=== PATIENT | male | born 1960 | race Two or more races ===

== ENCOUNTER 2024-06-26 09:30 | Inpatient (IN) | payer MEDICAID, SELFPAY ==
[2024-06-26] VITALS (9 sets, daily range): BP systolic 118–144; BP diastolic 49–103; PULSE 86–112; RESP 12–96; TEMP 36.4–36.8; O2SAT 93–97; BMI 16.6; BMI 14.2
--- NOTE | 2024-06-26 09:40 | XR_ITS ---
Examination: Left femur 2 views TECHNIQUE: AP lateral left femur 2 views Exam date and time: June 26, 2024 0951 hours INDICATIONS: Left femur pain this week FINDINGS: Osteolytic lesion proximal to mid femoral shaft, 36 mm, destroying the cortex of the femoral shaft No pathologic fracture No hip dislocation Smaller osteolytic lesion subtrochanteric region left femur 13 mm IMPRESSION: Osteolytic lesion destroying cortex of the proximal femoral shaft, 36 mm Smaller osteolytic lesion subtrochanteric region left femur, 13 mm Differential would include osseous metastatic disease, round cell tumor such as multiple myeloma Recommend whole body bone scan follow-up Consider plain film metastatic bone survey follow-up Consider CT scan chest abdomen pelvis post contrast restaging
--- NOTE | 2024-06-26 09:40 | XR_ITS ---
Examination: Duplex scan of the lower extremity, unilateral left complete Date and time of exam: June 26, 2024 1005 hours INDICATIONS: Left leg pain beginning 3 days ago Technique: Duplex scan of the extremity veins using B-mode/grayscale imaging and Doppler spectral analysis and color flow Attention is directed to internal echogenicity, compression and augmentation involving these veins, color flow assessment, spectral analysis Findings: Major deep venous structures in the extremity demonstrate normal course and caliber. There is no evidence of deep vein thrombosis. Normal color flow and spectral analysis Impression: Negative for DVT..
--- NOTE | 2024-06-26 09:43 | PD.EDRME ---
Rapid Medical Screening Exam RME Arrival date/time: 06/26/24 09:30 63-year-old male with cancer presents to the emergency department today with caregiver who reports the patient is weak and has failure to thrive requesting G-tube and further evaluation Chief Complaint: Dental/Oral/Throat Time Seen by Provider: 06/26/24 12:39 Vital signs: Vital Signs Temperature 97.5 F 06/26/24 09:39 Pulse Rate 107 H 06/26/24 09:39 Respiratory Rate 19 06/26/24 09:39 Blood Pressure 131/86 H 06/26/24 09:39 Pulse Oximetry (%) 93 L 06/26/24 09:39 Oxygen Delivery Method Room Air 06/26/24 09:39
[2024-06-26 10:18] LABS: Basophils # (Auto) 0.1 Thou/mm3 (0.0-0.2); Basophils % (Auto) 1 % (0-2.5); Eosinophils # (Auto) 0.1 Thou/mm3 (0.0-0.5); Eosinophils % (Auto) 1 % (0-10); Hematocrit 31.7 % (41.0-53.0); Hemoglobin 10.2 g/dL (13.5-16.0); Immature Granulocytes % (Auto) 0 % (0-0); Immature Granulocytes Auto 0.02 Thou/mm3 (0.00-0.00); Lymphocytes # (Auto) 0.8 Thou/mm3 (1.0-4.8); Lymphocytes % (Auto) 14 % (10-50); Mean Corpuscular HGB Conc 32.2 g/dl (31.0-37.0); Mean Corpuscular Volume 87 fL (80-100); Monocytes # (Auto) 0.4 Thou/mm3 (0.0-0.8); Monocytes % (Auto) 6 % (0-12); Neutrophils # (Auto) 4.5 Thou/mm3 (1.8-7.7); Neutrophils % (Auto) 78 % (37-80); Nucleated Red Blood Cell % 0 /100 WBC (0); Platelet Count 239 Thou/mm3 (140-440); Red Blood Count 3.64 Miln/mm3 (4.50-5.90); White Blood Count 5.8 Thou/mm3 (3.8-10.6)
[2024-06-26 10:37] LABS: INR 1.1 (0.9-1.3); Prothrombin Time 11.9 Seconds (9.0-12.2)
[2024-06-26 10:52] LABS: Alanine Aminotransferase 9 U/L (10-49); Albumin, Serum 4.1 gm/dL (3.4-4.8); Alkaline Phosphatase 125 U/L (46-116); Anion Gap 7 (7-16); Aspartate Amino Transferase 26 U/L (0-34); BUN/Creatinine Ratio 21 Ratio (12-20); Bilirubin,Total 0.4 mg/dL (0.3-1.2); Blood Urea Nitrogen 17 mg/dL (9-23); Calcium 9.4 mg/dL (8.3-10.6); Calcium (Corrected) 9.4 mg/dL (8.5-10.1); Carbon Dioxide 30.3 mMol/L (20.0-31.0); Chloride 96 mMol/L (98-107); Creatinine (Component) 0.8 mg/dL (0.6-1.3); Estimated Creatinine Clearance 63.4 mL/min (>60); Globulin 4.3 gm/dL (2.3-3.5); Glucose 121 mg/dL (74-106); Lipase 26 U/L (12-53); Osmolality,Calculated 268 (275-295); Sodium 133 mMol/L (136-145); Total Protein 8.4 gm/dL (5.7-8.2); eGFR > 60 See Note
--- NOTE | 2024-06-26 12:40 | EDNOTE_ITS ---
<Statement entered by Kayce Morales MD - 06/26/24 16:17> As co-signing physician, I was present and available for consult prn. I concur with the plan and care as documented by the midlevel provider. ED General RME/HPI General Chief complaint: Dental/Oral/Throat Stated complaint: SENT BY CNX DR FOR THROAT SCARRING; HX THROAT [facility] Time Seen by Provider: 06/26/24 12:39 Arrival date/time: 06/26/24 09:30 RME / HPI RME / HPI narrative: 63-year-old male with history of oral cancer, status post radiation and chemotherapy, status post esophageal dilatation x 2, presents to the emergency department today with caregiver who reports the patient is weak and has failure to thrive . Patient has been ongoing for the last 2 years, getting worse, this time every time patient ate or drink patient is coughing a lot. Patient also is losing a lot of weight. Patient called her cancer specialist, and was advised to go to the emergency room for possible G-tube placement. Patient also complained of pain to the left femur for 3 days, severity moderate. Patient is ambulatory. Denies any other complaints. Related Data Home Medications ?Medication ?Instructions ?Recorded ?Confirmed lisinopril 10 mg tablet 10 mg PO QDAY #0 tabs 10/30/16 08/07/23 hydrocodone 10 mg-acetaminophen 1 tab PO Q4H PRN Pain, Severe 02/08/23 08/07/23 325 mg tablet levothyroxine 25 mcg/mL oral 50 mcg PO QDAY 02/08/23 08/07/23 solution methadone 10 mg tablet 100 mg PO QDAY 02/08/23 08/07/23 pantoprazole 40 mg tablet,delayed 40 mg PO BID 08/07/23 08/07/23 release Previous Rx's ?Medication ?Instructions ?Recorded amoxicillin 500 mg capsule 500 mg PO TID #30 caps 05/17/18 Allergies Allergy/AdvReac Type Severity Reaction Status Date / Time No Known Allergies Allergy Verified 06/26/24 09:33 Review of Systems Review of Systems Narrative Review of Systems: Review of system reviewed and within normal limits except mentioned in HPI ED Exam Narrative Physical exam: VITAL SIGNS: Reviewed. GENERAL APPEARANCE: Alert and interactive, follows commands, no acute distress, HEAD AND FACE: Non-traumatic. ENT: PERRL, pink conjunctivitis, eyelid no trauma, Mucous membrane moist. Scarring noted on the tongue and lower lip NECK: Supple, nontender, no nuchal rigidity. CHEST: No tenderness, no crepitus, no paradoxical movement, no retractions. LUNGS: Clear, well ventilated, symmetric, no rales, no wheezing, no ronchi, no stridor, good breath sounds bilaterally. HEART: Regular rate, regular rhythm, no murmur, no gallops. ABDOMEN: Soft, positive bowel sounds, nondistended, no guarding, nontender, no rebound, no masses, RECTAL: Deferred. GENITAL: Deferred. NEUROLOGICAL: Gross motor function intact sensory function intact, Appropriate for age. MUSCULOSKELETAL: low back nontender, full range of motion. EXTREMITIES: Left thigh tenderness, no swelling no deformity, full range of motion. SKIN: Color pink, dry, no rash, no lacerations, no abrasions, no contusions. LYMPHATICS: Deferred. Course Quality Measures none Orders Category Date Time Status COVID-19 Screening Questionnaire NOW Care 06/26/24 14:31 Active Decision to Admit X1 Care 06/26/24 14:31 Active Consult to Gastroenterology Stat Cons 06/26/24 13:48 Ordered US venous doppler LE LT Stat Exams 06/26/24 09:40 Completed XR femur LT 2V Stat Exams 06/26/24 09:40 Completed CBC Stat Lab 06/26/24 10:01 Completed Comprehensive Metabolic Panel Stat Lab 06/26/24 10:01 Completed Lipase Stat Lab 06/26/24 10:01 Completed Partial Thromboplastin Time Stat Lab 06/26/24 10:01 Completed Prothrombin Time with INR Stat Lab 06/26/24 10:01 Completed HYDROcodone*/APAP 5/325 [[place] 5/325] Med 06/26/24 13:06 Discontinued 1 tab PO X1 ONE Morphine Inj Med 06/26/24 13:25 Discontinued 4 mg IM X1 ONE Ondansetron Odt [Zofran Odt] Med 06/26/24 13:25 Discontinued 4 mg PO X1 ONE Vital Signs Vital signs: Vital Signs Temperature 97.5 F 06/26/24 09:39 Pulse Rate 107 H 06/26/24 09:39 Respiratory Rate 19 06/26/24 09:39 Blood Pressure 131/86 H 06/26/24 09:39 Pulse Oximetry (%) 93 L 06/26/24 09:39 Oxygen Delivery Method Room Air 06/26/24 09:39 MDM Patient data External records reviewed:: None Clinical information provided by:: none Social determinants that could affect healthcare access:: none Patient has the following chronic illnesses:: History of oral cancer How is presenting disease/condition affected by chronic disease/condition?: e xacerbated by Evaluation data The following diagnostics were reviewed and interpreted by me:: lab results and radiology exam(s) Lab and/or radiology exams considered but not ordered:: None Interpretation Summary: See above results in MDM Medications Medications considered but not ordered:: None Medication administrations:: Medication Administration History Discontinued Medications Hydrocodone Bitart/Acetaminophen (Hydrocodone/Apap 5/325 Tablet) 1 tab PO X1 ONE Stop: 06/26/24 13:07 Last Admin: 06/26/24 13:41 Dose: Not Given Documented By: HELENE Non-Admin Reason: Patient Refused Morphine Sulfate (Morphine Sulf Inj 10 Mg/Ml Vial) 4 mg IM X1 ONE Stop: 06/26/24 13:26 Last Admin: 06/26/24 13:40 Dose: 4 mg Documented By: HELENE Ondansetron HCl (Ondansetron Odt 4 Mg Tabrap) 4 mg PO X1 ONE; Protocol Stop: 06/26/24 13:26 Last Admin: 06/26/24 13:40 Dose: 4 mg Documented By: HELENE Morphine IM and Zofran Consultations Consultation(s) initiated? (list below): Yes Consultation #1 (Physician, Specialty, Details): I spoke with Dr. Vazquez, GI specialist on-call, thank you Dr. Vazquez Diagnosis Differential Diagnosis ED Complaint MDM: Failure to thrive, history of dysphagia, arthritis of the aspiration, histo Most likely diagnosis given after review of the tests above:: Failure to thrive, encounter for placement of G-tube Admission Indicated Admission indicated?: indicated Explain why admission is indicated or not indicated:: For G-tube placement Admission Request Was there a request for admission?: Yes Admission Attestation Admission request attestation: Discussed case with [Dr. Herrera] from Hospitalist service regarding admission. Discussed patients ED course, exam findings, labs, and radiology results. The Hospitalist [agrees] to accept the patient for admission. Disposition Plan Disposition Plan: Admit Medical Decision Making MDM Narrative MDM Narrative: 63-year-old male with history of oral cancer, status post radiation and chemotherapy, status post esophageal dilatation x 2, presents to the emergency department today with caregiver who reports the patient is weak and has failure to thrive . Patient has been ongoing for the last 2 years, getting worse, this time every time patient ate or drink patient is coughing a lot. Patient also is losing a lot of weight. Patient called her cancer specialist, and was advised to go to the emergency room for possible G-tube placement. Patient also complained of pain to the left femur for 3 days, severity moderate. Patient is ambulatory. Denies any other complaints. X-ray of the left femur showed osteolytic lesion could be metastasis. Results discussed with the patient's and family. Laboratory workup all came back with hemoglobin of 10.2 hematocrit 31.7 otherwise unremarkable. Ultrasound of the thigh is negative for DVT. Spoke with Dr. Vazquez, GI specialist on-call, told me to admit the patient for him to put the G-tube in the morning. Thank you Dr. Vazquez Differential Diagnosis Differential Diagnosis: Failure to thrive, history of dysphagia, arthritis of the aspiration, histo Lab Data 06/26/24 10:01 06/26/24 10:01 Labs: Lab Results 06/26/24 Range/Units 10:01 WBC 5.8 (3.8-10.6) Thou/mm3 RBC 3.64 L (4.50-5.90) Miln/mm3 Hgb 10.2 L (13.5-16.0) g/dL Hct 31.7 L (41.0-53.0) % MCV 87 (80-100) fL MCH 28.0 (25.0-35.0) pg MCHC 32.2 (31.0-37.0) g/dl RDW Std Deviation 42.0 (35.1-43.9) fL Plt Count 239 (140-440) Thou/mm3 Neut % (Auto) 78 (37-80) % Lymph % (Auto) 14 (10-50) % Love % (Auto) 6 (0-12) % Eos % (Auto) 1 (0-10) % Baso % (Auto) 1 (0-2.5) % Neut # (Auto) 4.5 (1.8-7.7) Thou/mm3 Lymph # (Auto) 0.8 L (1.0-4.8) Thou/mm3 Love # (Auto) 0.4 (0.0-0.8) Thou/mm3 Eos # (Auto) 0.1 (0.0-0.5) Thou/mm3 Baso # (Auto) 0.1 (0.0-0.2) Thou/mm3 Immature Gran # (Auto) 0.02 H (0.00-0.00) Thou/mm3 Absolute Nucleated RBC 0.00 (0.00-0.00) Thou/mm3 Immature Gran % 0 (0-0) % Nucleated RBC % 0 (0) /100 WBC PT 11.9 (9.0-12.2) Seconds INR 1.1 (0.9-1.3) APTT 29.0 (22.0-36.0) Seconds Sodium 133 L (136-145) mMol/L Potassium 4.0 (3.4-5.1) mMol/L Chloride 96 L (98-107) mMol/L Carbon Dioxide 30.3 (20.0-31.0) mMol/L Anion Gap 7 (7-16) BUN 17 (9-23) mg/dL Creatinine 0.8 (0.6-1.3) mg/dL Estim Creat Clear Calc 63.4 (>60) mL/min eGFR > 60 (60 - ) See Note BUN/Creatinine Ratio 21 H (12-20) Ratio Glucose 121 H (74-106) mg/dL Calculated Osmolality 268 L (275-295) Calcium 9.4 (8.3-10.6) mg/dL Corrected Calcium 9.4 (8.5-10.1) mg/dL Total Bilirubin 0.4 (0.3-1.2) mg/dL AST 26 (0-34) U/L ALT 9 L (10-49) U/L Alkaline Phosphatase 125 H (46-116) U/L Total Protein 8.4 H (5.7-8.2) gm/dL Albumin 4.1 (3.4-4.8) gm/dL Globulin 4.3 H (2.3-3.5) gm/dL Albumin/Globulin Ratio 1.0 L (1.2-2.2) Lipase 26 (12-53) U/L Discharge Plan Plan Patient Disposition: HOME (Self Care) Disposition Comment: stable Prescriptions/Referrals Prescriptions/Med Rec: No Action lisinopril 10 MG tablet 10 mg PO QDAY Qty: 0 amoxicillin 500 mg capsule 500 mg PO TID Qty: 30 0RF methadone 10 mg Tablet 100 mg PO QDAY hydrocodone-acetaminophen 10-325 mg Tablet 1 tab PO Q4H PRN (Reason: Pain, Severe) Rx Instructions: CANCER PAIN levothyroxine 25 mcg/mL Solution 50 mcg PO QDAY pantoprazole 40 mg Tablet,Delayed Release (Dr/Ec) 40 mg PO BID Referrals: Edward SAUNDERS)Lilia FNP [Primary Care Provider] - In 1 week Problem List Clinical Impression: Adult failure to thrive, Encounter for gastrojejunal tube placement, History of cancer of mouth Patient/Caregiver Discharge Instructions Print Language: Nepali Stand Alone Forms: Elidia Award Info., Patient Portal Info Letter
[2024-06-26] MEDS: MORPHINE SULF INJ 10 MG/ML VIAL 4 MG IM (13:40)
[2024-06-26] MEDS: ONDANSETRON ODT 4 MG TABRAP PO (13:40)
--- NOTE | 2024-06-26 15:11 | EKG_ITS ---
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
--- NOTE | 2024-06-26 15:26 | XR_ITS ---
Examination: AP chest single view Technique one AP portable upright chest single view Exam date and time: June 26, 2024 2 hours Comparison January 22, 2017 INDICATIONS: Severe congestion shortness of breath today. FINDINGS: Extensive bilateral lung opacity primarily interstitial Normal heart size Significant right pleural disease Severe osteopenia IMPRESSION: Extensive bilateral opacity primarily interstitial, differential would include pneumonia with underlying pulmonary fibrosis Consider high resolution CT chest without contrast follow-up
--- NOTE | 2024-06-26 15:35 | ESHP_ITS ---
<Statement entered by Yash Guerra MD - 07/02/24 12:09> I reviewed above note and agree with findings and plans. I have also personally examined the patient with medicine team and went over assessment and plan with medical team including chief internal auditor and resident physician. <Statement entered by Anne Heredia MD - 06/26/24 21:35> I discussed with and supervised my co-resident involved in the care of this patient. I agree with the assessment and plan as documented above. Anne Heredia,PGY-3 Disclaimer: Despite multiple revisions, due to the dictation software being used, the document below may not be free of grammatical errors including phonetic/typographic errors. However, this does not deter from our commitment to providing health care in the patient's best interest in mind. Documentation for date of: 06/26/24 HPI History of Present Illness Chief complaint: trouble swallowing, failure to thrive, and L leg pain History of present illness: 63-year-old male with past medical history of oral cancer s/p radiation and chemotherapy (underneath the tongue 15 years ago and lower lip 4 years ago), esophageal strictures s/p dilations x 2, hypothyroidism, active smoker (smoked since 11 years old) and prior heroin use (on methadone) was admitted to the hospital on 06/26/2024 after coming to the ED with chief complaints of weakness and failure to thrive. On assessment patient stated that he has been losing weight, but that he does have an appetite and is that he just cannot pass food down his throat. He states that he feels like the food gets stuck in his throat. He also mention that he initially came in because his left leg was very painful and that he could not bear weight on it due to pain. He stated that this pain started around 3 days ago. Patient's roommate was also at bedside and stated that he has been having a lot of weight loss. Patient follows up outpatient with oncologist at [facility], who we spoke to and stated that the patient was recently seen at [facility] for similar symptoms, but did not know GI workup was done. Patient stated that he would be agreeable to do PEG tube, but would like to have the proper workup prior to getting the PEG tube as he states that he has an appetite and wants to eat. He has no other complaints at this time. Off note, as per the patient's oncologist he stated that he does not think that his cancer recurred and thinks that new findings on his femur should be worked up. ED course: Initially patient was tachycardic, hypertensive, and afebrile. Initial labs were relevant for normocytic normochromic anemia (Hgb 10.2), mild hyponatremia (133), elevated globulin at 4.3, and elevated total protein to 8.4. Initial imaging included femur x-ray which showed osteolytic lesions destroying the cortex of the proximal femur shaft and a smaller osteolytic lesion still trochanteric region of the left femur. Additional imaging included a venous Doppler study which was negative for DVT, chest x-ray was showed bilateral opacities which could be due to pneumonia versus pulmonary fibrosis, and EKG which showed sinus tachycardia. PMH: As above Social Hx: Admits to smoking (1 to 2 cigarettes/day now), denies any drugs (is on methadone due to prior heroin use), admits to social drinking Meds: Methadone and levothyroxine, pending medication reconciliation. Review of Systems Review of Systems Narrative Review of Systems: Constitutional: Denies sweats, Admits weight loss, Denies fever, Denies chills. HEENT: Denies hearing loss, Denies ear pain, Denies postnasal drip, Denies double vision, Denies blurry vision. Respiratory: Denies shortness of breath, Denies cough, Denies wheezing. Cardiovascular: Denies chest pain, Denies palpitations, Denies sudden loss of consciousness. GI: Denies blood in stool, Denies constipation, Denies abdominal pain, Admits difficulty swallowing, Admits nausea. : Denies urinary incontinence, Denies pain while urinating, Denies increased urinary frequency. MSK: Admits joint pain, Denies joint swelling, Denies numbness. Skin: Denies rash, Denies itching, Denies easy bruising. Neuro: Denies headaches, Denies dizziness, Denies seizures. Past Medical History Surgical History OTHER SURGICAL HX: Essential hypertension Hypothyroidism Exam Vital Signs Temp Pulse Resp BP Pulse Ox O2 Del Method 98.2 F 106 H 16 144/103 H 94 L Room Air 06/26/24 15:06/26/24 15:06/26/24 15:06/26/24 15:01 06/26/24 15:01 06/26/24 15:01 Narrative Exam General: A/O x3, no acute distress, thin frail male, temporal wasting Eyes: PERRL, EOMI. Anicteric, vision grossly intact. Ears: No ear pain, no ear discharge, Hearing grossly intact. Nose: No nasal discharge. Mouth/Throat: Dry mucous membranes, no dentation,no redness, no lesions. Neck: Neck supple, non-tender, no cervical lymphadenopathy. Lungs: Clear JAVIER to auscultation and percussion, No accessory muscle use. Cardio: Normal S1/S2, regular rhythm, no murmurs, no JVD Abdomen: Soft, non-tender, no palpable masses, peristalsis present, no guarding or rebound. Extremities: Symmetrical, no significant deformities, no peripheral edema , L lower leg tender to mild palpation on lateral aspect of upper L Lower leg with a scar from previous cut (no surgery), peripheral pulses presents. Skin: No rashes, no lesions, warm to touch. Neuro: No focal neurological deficits. motor and sensory intact Results: Labs 06/26/24 10:01 06/26/24 10:01 Labs: Short CBC 06/26/24 Range/Units 10:01 WBC 5.8 (3.8-10.6) Thou/mm3 Hgb 10.2 L (13.5-16.0) g/dL Hct 31.7 L (41.0-53.0) % Plt Count 239 (140-440) Thou/mm3 BMP 06/26/24 10:01 Sodium 133 L Potassium 4.0 Chloride 96 L Carbon Dioxide 30.3 BUN 17 Creatinine 0.8 Glucose 121 H Calcium 9.4 Liver Function 06/26/24 Range/Units 10:01 Total Bilirubin 0.4 (0.3-1.2) mg/dL AST 26 (0-34) U/L ALT 9 L (10-49) U/L Alkaline Phosphatase 125 H (46-116) U/L Albumin 4.1 (3.4-4.8) gm/dL Quality Measures Quality Measures none Medications Home Medications and Allergies Home Medications ?Medication ?Instructions ?Recorded ?Confirmed ?Type lisinopril 10 mg tablet 10 mg PO QDAY #0 tabs 10/30/16 08/07/23 History hydrocodone 10 mg-acetaminophen 1 tab PO Q4H PRN Pain, Severe 02/08/23 08/07/23 History 325 mg tablet levothyroxine 25 mcg/mL oral 50 mcg PO QDAY 02/08/23 08/07/23 History solution methadone 10 mg tablet 100 mg PO QDAY 02/08/23 08/07/23 History pantoprazole 40 mg tablet,delayed 40 mg PO BID 08/07/23 08/07/23 History release Allergies Allergy/AdvReac Type Severity Reaction Status Date / Time No Known Allergies Allergy Verified 06/26/24 09:33 Visit Medications Discontinued Medications Hydrocodone Bitart/Acetaminophen (Hydrocodone/Apap 5/325 Tablet) 1 tab PO X1 ONE Stop: 06/26/24 13:07 Last Admin: 06/26/24 13:41 Dose: Not Given Morphine Sulfate (Morphine Sulf Inj 10 Mg/Ml Vial) 4 mg IM X1 ONE Stop: 06/26/24 13:26 Last Admin: 06/26/24 13:40 Dose: 4 mg Ondansetron HCl (Ondansetron Odt 4 Mg Tabrap) 4 mg PO X1 ONE; Protocol Stop: 06/26/24 13:26 Last Admin: 06/26/24 13:40 Dose: 4 mg Assessment & Plan Plan 63-year-old male with past medical history of oral cancer s/p radiation and chemotherapy (underneath the tongue 15 years ago and lower lip 4 years ago), esophageal strictures s/p dilations x 2, hypothyroidism, active smoker (smoked since 11 years old) and prior heroin use (on methadone) was admitted to the hospital on 06/26/2024 for dysphagia, failure to thrive, and left leg pain. #Dysphagia #Failure to thrive #Hx of esophageal stricture s/p dilation x 2 #protein calorie malnutrition #cachexia ? Patient states today he has been having trouble passing his food that he thinks they get stuck in his throat. ? DDx esophageal strictures versus esophageal malignancy -BMI -14.2 Plan: ? N.p.o. after midnight ? GI consulted, particular lesions ? Refer to registered dietitian ? Refer to speech therapist ? Will continue to monitor #Left lower leg pain #Left femur osteolytic lesions #Hx of oral cancer s/p radiatation and chemo ? Patient states that he has been unable to bear weight on his left lower leg as it is very painful ?DDx bone metastasis versus multiple myeloma in the setting of high globulin ? Femur x-ray showed osteolytic lesion destroying cortex of proximal femur shaft measuring 36 mm and smaller loculated lesion of the subtrochanteric region of the left femur measuring 13 mm ? Spoke with patient's oncologist who stated that it was less likely to be recurrence of his prior cancer and that they which was most probably something new that he needed to have further workup. Plan: -Toradol 30mg prn for pain as needed -Patient may need bone biopsy, but will wait for recs from oncology - Consult hematology/oncology, appreciate recommendations -Will continue to monitor #Hypothyroidism -TSH ordered for am labs -Will restart patient's levothyroxine #Hx of prior heroin use (on methadone) -Will await patient to bring his methadone to reconcile and start -Took today's dose already Disposition: Patient admitted to telemetry for GI workup due to dysphagia and new osteolytic lesion in L femur. Diet: NPO GI prophylaxis: Protonix DVT prophylaxis: SCDs Code: Full code Case disclosed with Attending Dr. Guerra and My senior Dr. Heredia PGY3. Juventino Figueroa PGY1
--- NOTE | 2024-06-26 16:46 | ESCONSULT_ITS ---
HPI Data of Consult Requesting Physician: Yash Guerra MD Primary Care Provider: L[facility] Schroeder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 and unable to eat I was consulted by the physician physician office assistant/LESLIE of the possibility of a placement of an endoscopically assisted gastrostomy tube cc:: cc: Yash Guerra MD Review of Systems Review of Systems Systems Reviewed: All systems reviewed, normal except as documented Past Medical History Surgical History OTHER SURGICAL HX: Essential hypertension Hypothyroidism Meds Home Medications and Allergies Home Medications ?Medication ?Instructions ?Recorded ?Confirmed ?Type lisinopril 10 mg tablet 10 mg PO QDAY #0 tabs 10/30/16 08/07/23 History hydrocodone 10 mg-acetaminophen 1 tab PO Q4H PRN Pain, Severe 02/08/23 08/07/23 History 325 mg tablet levothyroxine 25 mcg/mL oral 50 mcg PO QDAY 02/08/23 08/07/23 History solution methadone 10 mg tablet 100 mg PO QDAY 02/08/23 08/07/23 History pantoprazole 40 mg tablet,delayed 40 mg PO BID 08/07/23 08/07/23 History release Allergies Allergy/AdvReac Type Severity Reaction Status Date / Time No Known Allergies Allergy Verified 06/26/24 09:33 Exam Vital Signs Temp Pulse Resp BP Pulse Ox O2 Del Method O2 Flow Rate 98.2 F 104 H 12 139/90 H 93 L Room Air 1 06/26/24 16:11 06/26/24 16:11 06/26/24 16:11 06/26/24 16:11 06/26/24 16:11 06/26/24 16:11 06/26/24 16:09 Constitutional Comments: Chronically ill-appearing Routine Respiratory Exam Comments: Normal to auscultation Routine Abdominal Exam Comments: Soft nontender Results Labs 06/26/24 10:01 06/26/24 10:01 Labs: Short CBC 06/26/24 Range/Units 10:01 WBC 5.8 (3.8-10.6) Thou/mm3 Hgb 10.2 L (13.5-16.0) g/dL Hct 31.7 L (41.0-53.0) % Plt Count 239 (140-440) Thou/mm3 BMP 06/26/24 10:01 Sodium 133 L Potassium 4.0 Chloride 96 L Carbon Dioxide 30.3 BUN 17 Creatinine 0.8 Glucose 121 H Calcium 9.4 Liver Function 06/26/24 Range/Units 10:01 Total Bilirubin 0.4 (0.3-1.2) mg/dL AST 26 (0-34) U/L ALT 9 L (10-49) U/L Alkaline Phosphatase 125 H (46-116) U/L Albumin 4.1 (3.4-4.8) gm/dL Assessment and Plan Additional Assessment & Plan Additional Plan: # Failure to thrive with dysphagia in the setting of oropharyngeal malignancy Patient will undergo fiberoptic esophagogastroduodenoscopy with possible esophageal dilatation possible placement of a percutaneous endoscopic gastrostomy tube under intravenous moderate sedation scheduled for tomorrow Consent obtained Ancef 1 g IV piggyback on-call to endoscopy Other medical problems include # Essential hypertension # Hypothyroidism # Abnormal weight loss Thank you very much for the opportunity to participate in the care of this patient
--- NOTE | 2024-06-26 17:07 | PC.NURSE ---
Addendum entered by Andrae Vanessa RN 06/26/24 19:12: @1708- PER DR. COPE, PT OK TO DRINK AND EAT UNTIL 0900 TOMORROW. Original Note: DR. COPE AT BEDSIDE OBTAINING CONSENT FOR PT'S PROCEDURE.
[2024-06-26] MEDS: KETOROLAC INJ 30 MG/ML VIAL IVP (17:27)
[2024-06-27] VITALS (25 sets, daily range): BP systolic 98–151; BP diastolic 68–106; PULSE 76–106; RESP 8–24; TEMP 36.2–36.8; O2SAT 88–99; BMI 14.1
[2024-06-27] MEDS: KETOROLAC INJ 30 MG/ML VIAL IVP ×3 (03:41→23:54)
[2024-06-27] MEDS: LEVOTHYROXINE SODIUM 125 MCG TABLET PO (05:03)
[2024-06-27 06:44] LABS: Basophils % (Auto) 1 % (0-2.5); Eosinophils # (Auto) 0.1 Thou/mm3 (0.0-0.5); Eosinophils % (Auto) 3 % (0-10); Hematocrit 30.2 % (41.0-53.0); Hemoglobin 9.8 g/dL (13.5-16.0); Immature Granulocytes % (Auto) 0 % (0-0); Immature Granulocytes Auto 0.02 Thou/mm3 (0.00-0.00); Lymphocytes % (Auto) 21 % (10-50); Mean Corpuscular HGB Conc 32.5 g/dl (31.0-37.0); Mean Corpuscular Hemoglobin 28.2 pg (25.0-35.0); Mean Corpuscular Volume 87 fL (80-100); Monocytes # (Auto) 0.4 Thou/mm3 (0.0-0.8); Monocytes % (Auto) 8 % (0-12); Neutrophils # (Auto) 3.2 Thou/mm3 (1.8-7.7); Neutrophils % (Auto) 67 % (37-80); Nucleated Red Blood Cell % 0 /100 WBC (0); Platelet Count 222 Thou/mm3 (140-440); RDW Standard Deviation 41.1 fL (35.1-43.9); Red Blood Count 3.47 Miln/mm3 (4.50-5.90); White Blood Count 4.8 Thou/mm3 (3.8-10.6)
[2024-06-27 07:12] LABS: Alanine Aminotransferase < 7 U/L (10-49); Albumin, Serum 3.7 gm/dL (3.4-4.8); Albumin/Globulin Ratio 0.9 (1.2-2.2); Alkaline Phosphatase 121 U/L (46-116); Anion Gap 6 (7-16); Aspartate Amino Transferase 21 U/L (0-34); BUN/Creatinine Ratio 20 Ratio (12-20); Bilirubin,Total 0.5 mg/dL (0.3-1.2); Blood Urea Nitrogen 14 mg/dL (9-23); Calcium 9.4 mg/dL (8.3-10.6); Calcium (Corrected) 9.6 mg/dL (8.5-10.1); Carbon Dioxide 30.6 mMol/L (20.0-31.0); Cardiac Risk Estimate 2.7 RATIO (4.0-6.7); Chloride 96 mMol/L (98-107); Cholesterol 103 mg/dL (132-200); Creatinine (Component) 0.7 mg/dL (0.6-1.3); Globulin 4.2 gm/dL (2.3-3.5); Glucose 68 mg/dL (74-106); HDL Cholesterol 38 mg/dL (40-60); LDL Cholesterol,Calculated 51 mg/dL (0-130); Magnesium 1.6 mg/dL (1.6-2.6); Osmolality,Calculated 264 (275-295); Phosphorous 3.1 mg/dL (2.4-5.1); Potassium 4.2 mMol/L (3.4-5.1); Sodium 133 mMol/L (136-145); Thyroid Stimulating Hormone 9.86 uIU/mL (0.55-4.78); Total Protein 7.9 gm/dL (5.7-8.2); Triglycerides 72 mg/dL (30-150); eGFR > 60 See Note
--- NOTE | 2024-06-27 07:49 | ESCONSULT_ITS ---
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 3 years ago patient was thought to have cancer involving the lip and had chemotherapy in [place] under Dr. Dean's direction. Since his treatment she has had chronic malnutrition thought to be related to his treatment side effects. Patient was admitted with failure to thrive initially went to [facility] ER then was admitted through [facility] yesterday. Patient had left femur x-ray because of complaints of pain at that site which revealed osteolytic lesion destroying the cortex of the femur all approximately 36 mm as well as smaller osteolytic lesion in the subtrochanteric region left femur 13 mm. Chest x-ray revealed extensive bilateral opacity with pneumonia and pulmonary fibrosis among the differentials. Labs showed moderate anemia of 10.2 hemoglobin, elevated TSH of 9.86, globulin and total protein elevated. Patient has seen Dr. Vazquez who has scheduled patient for endoscopy and possible placement of G-tube. Patient now referred for oncological consultation. 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 Meds Home Medications and Allergies Home Medications ?Medication ?Instructions ?Recorded ?Confirmed ?Type hydrocodone 10 mg-acetaminophen 1 tab PO Q4H PRN Pain, Severe 02/08/23 06/27/24 History 325 mg tablet levothyroxine 25 mcg/mL oral 50 mcg PO QDAY 02/08/23 06/27/24 History solution pantoprazole 40 mg tablet,delayed 40 mg PO BID 08/07/23 06/27/24 History release methadone 10 mg/mL oral concentrate 100 mg PO QDAY 06/27/24 06/27/24 History Allergies Allergy/AdvReac Type Severity Reaction Status Date / Time No Known Allergies Allergy Verified 06/26/24 09:33 Exam Vital Signs Temp Pulse Resp BP Pulse Ox O2 Del Method O2 Flow Rate 97.9 F 100 16 112/90 H 93 L Nasal Cannula 2 06/27/24 04:00 06/27/24 04:00 06/27/24 04:00 06/27/24 04:00 06/27/24 04:00 06/27/24 04:00 06/27/24 04:00 Narrative Exam Thin gentleman lying comfortably; oral cavity with prior surgery radiation effects mouth and lip. Results Labs 06/27/24 05:50 06/27/24 05:50 Labs: Short CBC 06/26/24 06/27/24 Range/Units 10:01 05:50 WBC 5.8 4.8 (3.8-10.6) Thou/mm3 Hgb 10.2 L 9.8 L (13.5-16.0) g/dL Hct 31.7 L 30.2 L (41.0-53.0) % Plt Count 239 222 (140-440) Thou/mm3 BMP 06/26/24 06/27/24 10:01 05:50 Sodium 133 L 133 L Potassium 4.0 4.2 Chloride 96 L 96 L Carbon Dioxide 30.3 30.6 BUN 17 14 Creatinine 0.8 0.7 Glucose 121 H 68 L D Calcium 9.4 9.4 Liver Function 06/26/24 06/27/24 Range/Units 10:01 05:50 Total Bilirubin 0.4 0.5 (0.3-1.2) mg/dL AST 26 21 (0-34) U/L ALT 9 L < 7 L (10-49) U/L Alkaline Phosphatase 125 H 121 H (46-116) U/L Albumin 4.1 3.7 (3.4-4.8) gm/dL Assessment and Plan Additional Assessment & Plan Additional Plan: 1. History of prior tongue and lip cancer; prior surgery chemoradiation. 2. Suspected left femur mets; possible new primary malignancy site needs to be suspected since oral and lip cancer rarely metastasizes to distant bony sites. 3. Weight loss and cachexia; awaiting EGD and possible G-tube placement by Dr. Vazquez. 4. Shall order bone scan tumor markers plasma cell tumor markers CT chest abdomen, and follow.
--- NOTE | 2024-06-27 08:09 | XR_ITS ---
Examination: CT chest with intravenous contrast CT abdomen with intravenous contrast CT pelvis with intravenous contrast 2-D coronal and sagittal reconstructions Time of exam: June 27, 2024 1207 hours INDICATIONS: Diagnosis head and neck malignancy, CT chest November 08, 2023 24 mm nodule spiculated margins right upper lobe, 4 mm pulmonary nodule left upper lobe, 4 mm pulmonary nodule right lower lobe, restaging CTDI: vol (mGy) : 4.01 DLP: (mGycm): 288 Technique: Multiple axial images of the chest, abdomen and pelvis with intravenous contrast, 3.0 mm slice thickness. Images obtained post intravenous injection Isovue 370 60 cc. 2-D sagittal and coronal reconstructions. Low dose protocols were performed. One or more of the following dose reduction techniques were used; automated exposure control, adjustment of the mA and/or KV according to patient size, use of iterative reconstruction technique. Findings: Enlarging pretracheal lymph node mass, currently 26 mm Interval bilateral hilar lymphadenopathy, prominent right hilum surrounding the right pulmonary artery No pulmonary artery emboli Likely obstructive pneumonia in the right lower lobe secondary to the enlarging right hilar lymphadenopathy Enlarging spiculated pulmonary mass in the right upper lobe, currently at least 26 mm 6 mm pulmonary nodule in the right upper lobe Moderate to large right pleural effusion Dilated bronchi in both lower lobes 6 mm 4 mm pulmonary nodules left midlung No visualized liver or splenic lesion Gallstones No pancreatic mass No hydronephrosis Abdominal aorta normal size Large amounts of stool throughout the colon Distended urinary bladder Transverse prostate dimension 4.5 cm Moderate osteopenia IMPRESSION: Interval enlarging mediastinal lymphadenopathy Obstructive pneumonia in the right lower lobe secondary to the enlarging right hilar lymphadenopathy Progression of pulmonary metastatic disease Moderate to large right pleural effusion amenable to ultrasound-guided thoracentesis
[2024-06-27 09:39] LABS: Carcinoembryonic Antigen 10.4 ng/mL (0.0-5.0)
[2024-06-27 10:17] LABS: Prostate Specific Antigen 0.72 ng/mL (0-4.00)
[2024-06-27] MEDS: SODIUM CHLORIDE 0.9% 1000 ML 1,000 ML 80 ML IV ×2 (10:24→21:13)
[2024-06-27] MEDS: PANTOPRAZOLE INJ 40 MG VIAL IVP (10:25)
--- NOTE | 2024-06-27 11:16 | ESPR_ITS ---
<Statement entered by Yash Guerra MD - 07/02/24 12:10> I reviewed above note and agree with findings and plans. I have also personally examined the patient with medicine team and went over assessment and plan with medical team including chemical engineering intern and resident physician. Documentation for date of: 06/27/24 Subjective Subjective Interval history: Patient seen at bedside this morning. He will be n.p.o. after breakfast for EGD today with possible dilation if there is any esophageal stricture and possible placement of PEG tube. Patient was irritable today as he stated he was hungry and did not have anything to eat other than liquids. He also stated that he wanted pain medication, but his methadone will be restarted today. Oncology saw the patient and stated they could be possible metastasis to left femur versus new malignancy. Oncology was ordered bone scan and tumor markers. No other complaints this time. Exam Vital Signs Temp Pulse Resp BP Pulse Ox O2 Del Method O2 Flow Rate 97.6 F 105 H 16 139/106 H 93 L Nasal Cannula 2 06/27/24 07:55 06/27/24 07:55 06/27/24 07:55 06/27/24 07:55 06/27/24 07:55 06/27/24 07:55 06/27/24 07:55 Narrative Exam General: A/O x3, no acute distress, thin frail male, temporal wasting, irritable Eyes: PERRL, EOMI. Anicteric, vision grossly intact. Ears: No ear pain, no ear discharge, Hearing grossly intact. Nose: No nasal discharge. Mouth/Throat: Dry mucous membranes, no dentation,no redness, no lesions. Neck: Neck supple, non-tender, no cervical lymphadenopathy. Lungs: Clear JAVIER to auscultation and percussion, No accessory muscle use. Cardio: Normal S1/S2, regular rhythm, no murmurs, no JVD Abdomen: Soft, non-tender, no palpable masses, peristalsis present, no guarding or rebound. Extremities: Symmetrical, no significant deformities, no peripheral edema , L lower leg tender to mild palpation on lateral aspect of upper L Lower leg with a scar from previous cut (no surgery), peripheral pulses presents. Skin: No rashes, no lesions, warm to touch. Neuro: No focal neurological deficits. motor and sensory intact Objective Labs 06/27/24 05:50 06/27/24 05:50 Labs: Laboratory Results - last 24 hr 06/27/24 05:50 WBC 4.8 RBC 3.47 L Hgb 9.8 L Hct 30.2 L MCV 87 MCH 28.2 MCHC 32.5 RDW Std Deviation 41.1 Plt Count 222 Neut % (Auto) 67 Lymph % (Auto) 21 Carver % (Auto) 8 Eos % (Auto) 3 Baso % (Auto) 1 Neut # (Auto) 3.2 Lymph # (Auto) 1.0 Carver # (Auto) 0.4 Eos # (Auto) 0.1 Baso # (Auto) 0.0 Immature Gran # (Auto) 0.02 H Absolute Nucleated RBC 0.00 Immature Gran % 0 Nucleated RBC % 0 Sodium 133 L Potassium 4.2 Chloride 96 L Carbon Dioxide 30.6 Anion Gap 6 L BUN 14 Creatinine 0.7 Estim Creat Clear Calc 64.0 eGFR > 60 BUN/Creatinine Ratio 20 Glucose 68 L D Calculated Osmolality 264 L Calcium 9.4 Corrected Calcium 9.6 Phosphorus 3.1 Magnesium 1.6 Total Bilirubin 0.5 AST 21 ALT < 7 L Alkaline Phosphatase 121 H Total Protein 7.9 Albumin 3.7 Globulin 4.2 H Albumin/Globulin Ratio 0.9 L Triglycerides 72 Cholesterol 103 L LDL Cholesterol, Calc 51 HDL Cholesterol 38 L Cholesterol/HDL Ratio 2.7 L Carcinoembryonic Ag 10.4 H Prostate Specific Ag 0.72 TSH 9.86 H Quality Measures Quality Measures none Assessment & Plan Assessment Current Active Medications: Generic Name Dose Route Start Last Admin Trade Name Freq PRN Reason Stop Dose Admin Acetaminophen 650 mg 06/26/24 15:36 Acetaminophen 325 Mg Tablet PO 07/26/24 15:35 Q6H PRN pain(1-3) and Fever >100.4 Methadone 100 Mg 0 ea 06/27/24 11:00 Cups PO 07/27/24 10:59 DAILY ARNOL Dextrose 25 ml 06/27/24 07:30 Dextrose 50%-Water Inj 50 Ml Syringe IV 07/27/24 07:29 Q15MIN PRN BG 50-70 responsive npo pt Dextrose 50 ml 06/27/24 07:30 Dextrose 50%-Water Inj 50 Ml Syringe IV 07/27/24 07:29 Q15MIN PRN BG <50 OR BG <70 & pt unresponsive Glucagon 1 mg 06/27/24 07:30 Glucagon Inj 1 Mg Vial IM Q15MIN PRN BG <70, and no IV access Sodium Chloride 1,000 mls @ 80 mls/hr 06/27/24 09:15 06/27/24 10:24 Ns IV 07/27/24 09:14 80 mls/hr .[id number] ARNOL Administration Ketorolac Tromethamine 30 mg 06/26/24 16:28 06/27/24 03:41 Ketorolac Inj 30 Mg/Ml Vial IVP 07/01/24 16:27 30 mg Q6HR PRN Administration PAIN SCALE 4-10(Mod-Sev Levothyroxine Sodium 125 mcg 06/27/24 06:00 06/27/24 05:03 Levothyroxine Sodium 125 Mcg Tablet PO 07/27/24 05:59 125 mcg ACBR ARNOL Administration Ondansetron HCl 4 mg 06/26/24 15:36 Ondansetron Inj 2 Mg/Ml Inj 2 Ml IV 07/26/24 15:35 Q6H PRN NAUSEA OR VOMITING Protocol Pantoprazole Sodium 40 mg 06/27/24 09:15 06/27/24 10:25 Pantoprazole Inj 40 Mg Vial IVP 07/27/24 09:14 40 mg QDAY ARNOL Administration Pharmacy Consult 1 each 06/26/24 20:00 Pharmacy To Consult Pneumovacc XX 07/26/24 19:59 PRN PRN CONSULT Sennosides 1 tab 06/26/24 15:36 Senna Tablet PO 07/26/24 15:35 QDAY PRN constipation Protocol Plan 63-year-old male with past medical history of oral cancer s/p radiation and chemotherapy (underneath the tongue 15 years ago and lower lip 4 years ago), esophageal strictures s/p dilations x 2, hypothyroidism, active smoker (smoked since 11 years old) and prior heroin use (on methadone) was admitted to the hospital on 06/26/2024 for dysphagia, failure to thrive, and left leg pain. #Dysphagia #Failure to thrive #Hx of esophageal stricture s/p dilation x 2 #protein calorie malnutrition #cachexia ? Patient states today he has been having trouble passing his food that he thinks they get stuck in his throat. ? DDx esophageal strictures versus esophageal malignancy -BMI -14.2 Plan: ? N.p.o. -EGD today ? GI consulted, particular lesions ? Refer to registered dietitian ? Refer to speech therapist ? Will continue to monitor #Left lower leg pain #Left femur osteolytic lesions #Hx of oral cancer s/p radiatation and chemo ? Patient states that he has been unable to bear weight on his left lower leg as it is very painful ?DDx bone metastasis versus multiple myeloma in the setting of high globulin ? Femur x-ray showed osteolytic lesion destroying cortex of proximal femur shaft measuring 36 mm and smaller loculated lesion of the subtrochanteric region of the left femur measuring 13 mm ? Spoke with patient's oncologist who stated that it was less likely to be recurrence of his prior cancer and that they which was most probably something new that he needed to have further workup. Plan: -Toradol 30mg prn for pain as needed -bone scan and tumor markers ordered - Consult hematology/oncology, appreciate recommendations -Will continue to monitor #Hypothyroidism -TSH 9.86, orderd free t4 for am -Will continue patient's levothyroxine #Hx of prior heroin use (on methadone) -Will continue patient's methadone Disposition: Patient pendign EGD, bone scan and tumor markers Diet: NPO GI prophylaxis: Protonix DVT prophylaxis: SCDs Code: Full code Case disclosed with Attending Dr. Guerra and My senior Dr. Herrera PGY2. Juventino Figueroa PGY1 Senior Resident Attestation: The patient is a 63-year-old male with significant past medical history of oral cancer s/p radiation and chemotherapy 15 years ago, esophageal stricture s/p dilatation x 2, hypothyroidism, active smoker since age 11 and prior heroin use on methadone presented to ED with chief complaint of dysphagia leading to failure to thrive. This morning, patient reported that he has been hungry and wanted to eat. However, we will only resume feeding after the patient gets PEG tube placed. He also complained of leg pain, and will be getting methadone 100 Mg daily starting today. His vitals were fairly stable, mildly tachycardic, saturating 97% on 2 L NC. CBC at baseline, blood sugar 68, with CEA 10.4 and TSH 9.86. We will continue with Toradol 30 Mg 4 times daily as needed for pain and levothyroxine 50 mcg daily along with pantoprazole 40 Mg IV daily. After PEG tube placement, we will observe the patient overnight, and start the feeding. The plan is to possibly discharge this patient tomorrow afternoon. I discussed with and supervised the chemical engineering intern physician involved in the care of this patient. I personally saw and examined the patient and discussed the assessment and plan with the entire medicine team, including my attending. I agree with the assessment and plan as documented above. Tejas Herrera MD PGY2 Internal Medicine
--- NOTE | 2024-06-27 11:17 | PC.DIETICIAN ---
Patient is at significant risk for refeeding syndrome. Pending swallow evaluation If EN is initiated, consider: 1. Jevity 1.2 at 20 ml/hr x 24 hrs (do not advance). If no IV fluids, water flushes 25 ml/hr (or per MD). 2.Thiamine 100mg/day for 7 days; provide first dose at least 30 minutes before starting nutrition. 3.Multivitamins/Minerals. 4.Daily labs for P, K, and Mg ; replace as needed. If no electrolytes disturbances after 24 hrs, advance 10 ml every 12 hrs to goal rate of 70ml/hr x 24 hrs. Continue with water flushes 25 ml/hr (or per MD). RD to remain available as requested or needed.
[2024-06-27] MEDS: METHADONE 100 MG PO (11:39)
--- NOTE | 2024-06-27 12:08 | PC.NURSE ---
Pt is pissed because he NPO for procedure that is happening tonight at [address] Vazquez, he is cussing at nursing staff
--- NOTE | 2024-06-27 16:15 | PC.SS ---
Chata is alert/oriented. He states he resides at home with his friend. Patient to have a new peg tube placed today. Patient states he was having difficulty eating for the last 5 months. All he was eating was oatmeal. Patient very frail. He was not using any DME at home. Patient states he was holding on to things to get around his home. Patient has hx: Cancer. Patient states he would like a walker w/seat for home. Patient states he prefers HH services. Patient is on methadone. Patient PCP: Dr. Leon with [facility]. Last appointment was in April. Patient has no preference on home health agency. Patient states his friend, Liset, is the alt medical decision maker.
[2024-06-27] MEDS: ceFAZolin/D5W 1 GM IVPB 1 GM/50 ML BAG IV (16:52)
[2024-06-27] MEDS: DEXTROSE 50%-WATER INJ 50 ML SYRINGE 25 ML IV (17:49)
--- NOTE | 2024-06-27 19:00 | SUR.PHASEI ---
Pt. arrived to recovery, eyes closed, not responding to verbal commands, VSS with exception of 02 saturation at 88%, 02 via NC applied at 5 liters, lung sounds clear, diminished at the bases, equal expansion teresa., peg tube in place to medial abdomen small amount of redness to skin area around peg tube, report received from Precious MIRANDA.
--- NOTE | 2024-06-27 19:16 | SUR.PHASEI ---
Called and made Precious RN and Dr. Vazquez aware of pt.'s blood glucose of 57. Dr. Vazquez ordered dextrose 50% 50ml via IV. Will endorse and re-check blood glucose per policy.
[2024-06-27] MEDS: DEXTROSE 50%-WATER INJ 50 ML SYRINGE IV (19:26)
--- NOTE | 2024-06-27 20:21 | SUR.PHASEI ---
Pt. not responding to verbal commands, pressure to nail bed or sternal rub. VSS, continuing to attempt to stimulate pt.
--- NOTE | 2024-06-27 20:39 | SUR.PHASEI ---
Pt. responding to light shaking, opens eyes, sits up and lays back down and goes to sleep.
--- NOTE | 2024-06-27 20:45 | SUR.PHASEI ---
Pt. responding to verbal commands, VSS, no c/o pain or nausea
--- NOTE | 2024-06-27 20:56 | SUR.PHASEI ---
Called and gave report on pt. s/p procedure to Melva MIRANDA on M/S unit. Pt. is AAOx3, drifts back to sleep without stimulation, VSS, no c/o pain or nausea at this time.
--- NOTE | 2024-06-27 21:00 | SUR.PHASEI ---
Pt. transferred to room 366 via CALIN hemphill, no c/o pain or nausea, peg tube intact, IV flushed and patent, Melva MIRANDA assumed care of pt.
--- NOTE | 2024-06-27 21:07 | PC.NURSE ---
Pt arrived in room.
[2024-06-28] VITALS (8 sets, daily range): BP systolic 119–134; BP diastolic 78–94; PULSE 65–119; RESP 16–22; TEMP 36.3–37; O2SAT 90–100
[2024-06-28] MEDS: DEXTROSE 50%-WATER INJ 50 ML SYRINGE IV (00:10)
--- NOTE | 2024-06-28 04:39 | PC.NURSE ---
Pt is complaining of pain on the PEG Tube site. PRN Toradol is not yet due until 06:00. Notify MD Gatica and said okay to give the dose now.
[2024-06-28] MEDS: KETOROLAC INJ 30 MG/ML VIAL IVP (04:47)
[2024-06-28] MEDS: DEXTROSE 50%-WATER INJ 50 ML SYRINGE 25 ML IV (05:03)
[2024-06-28] MEDS: LEVOTHYROXINE SODIUM 25 MCG TABLET 50 MCG PO (05:17)
[2024-06-28] MEDS: THIAMINE 100 MG TABLET GT (06:00)
[2024-06-28] MEDS: MULTIVITAMIN 15 ML UDC GT (06:00)
[2024-06-28 06:01] LABS: Basophils % (Auto) 0 % (0-2.5); Eosinophils % (Auto) 0 % (0-10); Hematocrit 27.9 % (41.0-53.0); Immature Granulocytes % (Auto) 0 % (0-0); Immature Granulocytes Auto 0.01 Thou/mm3 (0.00-0.00); Lymphocytes # (Auto) 0.7 Thou/mm3 (1.0-4.8); Lymphocytes % (Auto) 9 % (10-50); Mean Corpuscular HGB Conc 32.3 g/dl (31.0-37.0); Mean Corpuscular Hemoglobin 28.2 pg (25.0-35.0); Mean Corpuscular Volume 88 fL (80-100); Monocytes # (Auto) 0.3 Thou/mm3 (0.0-0.8); Monocytes % (Auto) 4 % (0-12); Neutrophils # (Auto) 6.6 Thou/mm3 (1.8-7.7); Neutrophils % (Auto) 87 % (37-80); Nucleated Red Blood Cell % 0 /100 WBC (0); Platelet Count 201 Thou/mm3 (140-440); RDW Standard Deviation 42.1 fL (35.1-43.9); Red Blood Count 3.19 Miln/mm3 (4.50-5.90); White Blood Count 7.6 Thou/mm3 (3.8-10.6)
--- NOTE | 2024-06-28 06:45 | PD.ONCPROG ---
Documentation for date of: 06/28/24 Subjective Subjective Interval history: Pt underwent upper endoscopy and PEG tube placement yesterday by Dr Vazquez. . Benign appearing moderate stenosis or scarring noted in proximal esophagus which was dilated. Receiving enteral feedings now. CT shows enlarging mediastinal lymphadenopathy enlarging R hilar adenopathy, pulmonary mets R pleural effusion. Exam Vital Signs Temp Pulse Resp BP Pulse Ox O2 Del Method O2 Flow Rate 98.4 F 119 H 21 H 126/86 H 91 L Nasal Cannula 3 06/28/24 04:00 06/28/24 04:00 06/28/24 04:00 06/28/24 04:00 06/28/24 04:00 06/28/24 04:00 06/28/24 04:00 Objective Objective Narrative Objective Narrative: Appearing comfortable receiving enteral feedings. Labs 06/28/24 04:40 06/27/24 05:50 Labs: Laboratory Results - last 24 hr 06/27/24 06/28/24 05:50 04:40 WBC 4.8 7.6 D RBC 3.47 L 3.19 L Hgb 9.8 L 9.0 L Hct 30.2 L 27.9 L MCV 87 88 MCH 28.2 28.2 MCHC 32.5 32.3 RDW Std Deviation 41.1 42.1 Plt Count 222 201 Neut % (Auto) 67 87 H Lymph % (Auto) 21 9 L Trinity % (Auto) 8 4 Eos % (Auto) 3 0 Baso % (Auto) 1 0 Neut # (Auto) 3.2 6.6 Lymph # (Auto) 1.0 0.7 L Trinity # (Auto) 0.4 0.3 Eos # (Auto) 0.1 0.0 Baso # (Auto) 0.0 0.0 Immature Gran # (Auto) 0.02 H 0.01 H Absolute Nucleated RBC 0.00 0.00 Immature Gran % 0 0 Nucleated RBC % 0 0 Sodium 133 L Potassium 4.2 Chloride 96 L Carbon Dioxide 30.6 Anion Gap 6 L BUN 14 Creatinine 0.7 Estim Creat Clear Calc 64.0 eGFR > 60 BUN/Creatinine Ratio 20 Glucose 68 L D Calculated Osmolality 264 L Calcium 9.4 Corrected Calcium 9.6 Phosphorus 3.1 Magnesium 1.6 Total Bilirubin 0.5 AST 21 ALT < 7 L Alkaline Phosphatase 121 H Total Protein 7.9 Albumin 3.7 Globulin 4.2 H Albumin/Globulin Ratio 0.9 L Triglycerides 72 Cholesterol 103 L LDL Cholesterol, Calc 51 HDL Cholesterol 38 L Cholesterol/HDL Ratio 2.7 L Carcinoembryonic Ag 10.4 H Prostate Specific Ag 0.72 TSH 9.86 H Assessment & Plan A&P Narrative 1. History of prior tongue and lip cancer; prior surgery chemoradiation. 2. Suspected left femur mets; Enlarging mediastinal lymphadenopathy obstructive pneumonia RLL R hilar adenopathy 3. EGD esophageal dilation and PEG tube placement performed by Dr. Vazquez to improve nutrition. 4. US guided R thoracentesis to improve breathing. 5. RUL lung biopsy. Fluid cytology from thoracentesis unlikely to give needed details about the likely new cancer. Time Spent With Patient Time: Total time spent is greater than 50% in coordination of care (as documented) at patient's floor/unit and/or counseling patient:
[2024-06-28 06:59] LABS: Alanine Aminotransferase 7 U/L (10-49); Albumin, Serum 3.4 gm/dL (3.4-4.8); Albumin/Globulin Ratio 0.9 (1.2-2.2); Alkaline Phosphatase 107 U/L (46-116); Anion Gap 8 (7-16); Aspartate Amino Transferase 29 U/L (0-34); BUN/Creatinine Ratio 19 Ratio (12-20); Bilirubin,Total 0.5 mg/dL (0.3-1.2); Blood Urea Nitrogen 15 mg/dL (9-23); Calcium 8.8 mg/dL (8.3-10.6); Calcium (Corrected) 9.3 mg/dL (8.5-10.1); Chloride 100 mMol/L (98-107); Creatinine (Component) 0.8 mg/dL (0.6-1.3); Free T4 (Free Thyroxine) 0.86 ng/dL (0.89-1.76); Globulin 3.7 gm/dL (2.3-3.5); Magnesium 1.5 mg/dL (1.6-2.6); Osmolality,Calculated 264 (275-295); Phosphorous 3.1 mg/dL (2.4-5.1); Potassium 4.8 mMol/L (3.4-5.1); Sodium 133 mMol/L (136-145); Total Protein 7.1 gm/dL (5.7-8.2); eGFR > 60 See Note
[2024-06-28 07:02] LABS: Glucose 46 mg/dL (74-106)
--- NOTE | 2024-06-28 07:04 | XR_ITS ---
Examination: Ultrasound right hemithorax Ultrasound left hemithorax Exam date and time: June 28, 2024 1324 hours INDICATIONS: Difficulty breathing this week, history bilateral pleural effusions on chest x-ray June 26, 2024 TECHNIQUE AND FINDINGS: Sonographic images right and left hemithoraces Mild bilateral pleural fluid IMPRESSION: Mild bilateral pleural fluid, insufficient for safe thoracentesis
[2024-06-28] MEDS: Magnesium Sulfate 4 GM Ivpb 4 GM/50 ML BAG IV (07:38)
--- NOTE | 2024-06-28 07:44 | PC.NURSE ---
pt expressing frustration over clear liquid diet
[2024-06-28] MEDS: METHADONE 100 MG PO (08:01)
[2024-06-28] MEDS: PANTOPRAZOLE INJ 40 MG VIAL IVP (08:03)
[2024-06-28 09:42] LABS: INR 1.1 (0.9-1.3); Partial Thromboplastin Time 30.6 Seconds (22.0-36.0); Prothrombin Time 12.4 Seconds (9.0-12.2)
--- NOTE | 2024-06-28 09:56 | PCS.ST ---
Pt requesting oatmeal. Recommend full liquids or purees when cleared by GI to advance diet.
--- NOTE | 2024-06-28 09:58 | PC.NURSE ---
Received call from radiology endorsing concerns with proceeding with lung biopsy. Endorsed to Dr. Perkins. Dr. Perkins requested to speak to hospitalist team. Hospitalist team made aware stated they will review chart and speak with Dr. Perkins.
--- NOTE | 2024-06-28 10:05 | ESPR_ITS ---
<Statement entered by Yash Guerra MD - 07/02/24 12:15> I reviewed above note and agree with findings and plans. I have also personally examined the patient with medicine team and went over assessment and plan with medical team including investigator internal affairs and resident physician. Documentation for date of: 06/28/24 Subjective Subjective Interval history: Patient was seen at bedside this morning. No overnight events. Oncologist wanted patient to have ultrasound-guided thoracentesis, but there was not enough fluid to be drained when he was taken down. Oncologist also was ordered for lung biopsy, but interventional radiologist stated that the patient was very high risk due to cachexia and wanted to have the patient's approval and understanding of the procedure and its risk. Spoke with patient and his niece and his sister about potential risk of pneumothorax given his low body weight. Patient stated that he would like some time to come to the session with his sister and niece. Will await patient's final decision on lung biopsy before moving forward with it. Patient had PEG tube placed yesterday without any complications and he had an esophageal stricture which was dilated by GI specialist. He will start on tube feeds as well as pur?ed diet as per speech therapist recommendation. No other complaints this time. Exam Vital Signs Temp Pulse Resp BP Pulse Ox O2 Del Method O2 Flow Rate 97.3 F 102 H 17 128/94 H 94 L Room Air 3 06/28/24 08:00 06/28/24 08:00 06/28/24 08:00 06/28/24 08:00 06/28/24 08:00 06/28/24 08:00 06/28/24 04:00 Narrative Exam General: A/O x3, no acute distress, thin frail male, temporal wasting Eyes: PERRL, EOMI. Anicteric, vision grossly intact. Ears: No ear pain, no ear discharge, Hearing grossly intact. Nose: No nasal discharge. Mouth/Throat: Dry mucous membranes, no dentation,no redness, no lesions. Neck: Neck supple, non-tender, no cervical lymphadenopathy. Lungs: Clear JAVIER to auscultation and percussion, No accessory muscle use. Cardio: Normal S1/S2, regular rhythm, no murmurs, no JVD Abdomen: Soft, non-tender, no palpable masses, peristalsis present, no guarding or rebound. PEG tube in place with no discharge and wrapped with abdominal binder. Extremities: Symmetrical, no significant deformities, no peripheral edema , L lower leg tender to mild palpation on lateral aspect of upper L Lower leg with a scar from previous cut (no surgery), peripheral pulses presents. Skin: No rashes, no lesions, warm to touch. Neuro: No focal neurological deficits. motor and sensory intact Objective Labs 06/28/24 04:40 06/28/24 04:40 Labs: Laboratory Results - last 24 hr 06/27/24 06/28/24 06/28/24 05:50 04:40 08:40 WBC 7.6 D RBC 3.19 L Hgb 9.0 L Hct 27.9 L MCV 88 MCH 28.2 MCHC 32.3 RDW Std Deviation 42.1 Plt Count 201 Neut % (Auto) 87 H Lymph % (Auto) 9 L [place] % (Auto) 4 Eos % (Auto) 0 Baso % (Auto) 0 Neut # (Auto) 6.6 Lymph # (Auto) 0.7 L [place] # (Auto) 0.3 Eos # (Auto) 0.0 Baso # (Auto) 0.0 Immature Gran # (Auto) 0.01 H Absolute Nucleated RBC 0.00 Immature Gran % 0 Nucleated RBC % 0 PT 12.4 H INR 1.1 APTT 30.6 Sodium 133 L Potassium 4.8 D Chloride 100 Carbon Dioxide 25.0 Anion Gap 8 BUN 15 Creatinine 0.8 Estim Creat Clear Calc 56.0 L eGFR > 60 BUN/Creatinine Ratio 19 Glucose 46 L* Calculated Osmolality 264 L Calcium 8.8 Corrected Calcium 9.3 Phosphorus 3.1 Magnesium 1.5 L Total Bilirubin 0.5 AST 29 ALT 7 L Alkaline Phosphatase 107 Total Protein 7.1 Albumin 3.4 Globulin 3.7 H Albumin/Globulin Ratio 0.9 L Prostate Specific Ag 0.72 Free T4 0.86 L Quality Measures Quality Measures none Assessment & Plan Assessment Current Active Medications: Generic Name Dose Route Start Last Admin Trade Name Freq PRN Reason Stop Dose Admin Acetaminophen 650 mg 06/26/24 15:36 Acetaminophen 325 Mg Tablet PO 07/26/24 15:35 Q6H PRN pain(1-3) and Fever >100.4 Methadone 100 Mg 0 ea 06/27/24 11:00 06/28/24 08:01 Cups PO 07/27/24 10:59 100 mg DAILY ARNOL Administration Dextrose 25 ml 06/27/24 07:30 06/28/24 05:03 Dextrose 50%-Water Inj 50 Ml Syringe IV 07/27/24 07:29 25 ml Q15MIN PRN Administration BG 50-70 responsive npo pt Dextrose 50 ml 06/27/24 07:30 06/28/24 00:10 Dextrose 50%-Water Inj 50 Ml Syringe IV 07/27/24 07:29 50 ml Q15MIN PRN Administration BG <50 OR BG <70 & pt unresponsive Glucagon 1 mg 06/27/24 07:30 Glucagon Inj 1 Mg Vial IM Q15MIN PRN BG <70, and no IV access Sodium Chloride 1,000 mls @ 80 mls/hr 06/27/24 09:15 06/27/24 21:13 Ns IV 07/27/24 09:14 80 mls/hr .[id number] ARNOL Administration Magnesium Sulfate 4 gm in 50 mls @ 12.5 mls/hr 06/28/24 07:14 06/28/24 07:38 Magnesium Sulfate Ivpb IV 06/28/24 11:13 12.5 mls/hr X1 ONE Administration Ketorolac Tromethamine 30 mg 06/26/24 16:28 06/28/24 04:47 Ketorolac Inj 30 Mg/Ml Vial IVP 07/01/24 16:27 30 mg Q6HR PRN Administration PAIN SCALE 4-10(Mod-Sev Levothyroxine Sodium 88 mcg 06/29/24 06:00 Levothyroxine Sodium 88 Mcg Tablet PO 07/29/24 05:59 ACBR ARNOL Multivitamins/Minerals 15 ml 06/28/24 05:50 06/28/24 06:00 Multivitamin 15 Ml Udc GT 07/28/24 05:49 15 ml QDAY ARNOL Administration Ondansetron HCl 4 mg 06/26/24 15:36 Ondansetron Inj 2 Mg/Ml Inj 2 Ml IV 07/26/24 15:35 Q6H PRN NAUSEA OR VOMITING Protocol Pantoprazole Sodium 40 mg 06/27/24 09:15 06/28/24 08:03 Pantoprazole Inj 40 Mg Vial IVP 07/27/24 09:14 40 mg QDAY ARNOL Administration Pharmacy Consult 1 each 06/26/24 20:00 Pharmacy To Consult Pneumovacc XX 07/26/24 19:59 PRN PRN CONSULT Sennosides 1 tab 06/26/24 15:36 Senna Tablet PO 07/26/24 15:35 QDAY PRN constipation Protocol Thiamine HCl 100 mg 06/28/24 21:00 Thiamine 100 Mg Tablet GT 07/28/24 20:59 BID ARNOL Plan 63-year-old male with past medical history of oral cancer s/p radiation and chemotherapy (underneath the tongue 15 years ago and lower lip 4 years ago), esophageal strictures s/p dilations x 2, hypothyroidism, active smoker (smoked since 11 years old) and prior heroin use (on methadone) was admitted to the hospital on 06/26/2024 for dysphagia, failure to thrive, and left leg pain. #Dysphagia #Esophageal stricture s/p dilation #Failure to thrive #Hx of esophageal stricture s/p dilation x 2 #protein calorie malnutrition #cachexia #s/p PEG tube ? Patient states today he has been having trouble passing his food that he thinks they get stuck in his throat. ? DDx esophageal strictures versus esophageal malignancy -BMI -14.2 ? EGD done yesterday showed patient had esophageal stricture which was dilated and he had successful PEG tube placed. Plan: ? tube feeds and pureed diet ? GI consulted, particular lesions ? Refer to registered dietitian ? Refer to speech therapist ? Will continue to monitor #Left lower leg pain #Left femur osteolytic lesions #Mediastinal lymphadenopathy #Hilar lymphadenopathy #Pulmonary nodules possible metastasis #Right pleural effusion #Hx of oral cancer s/p radiatation and chemo ? Patient states that he has been unable to bear weight on his left lower leg as it is very painful ?DDx bone metastasis versus multiple myeloma in the setting of high globulin ? Femur x-ray showed osteolytic lesion destroying cortex of proximal femur shaft measuring 36 mm and smaller loculated lesion of the subtrochanteric region of the left femur measuring 13 mm ? Spoke with patient's oncologist who stated that it was less likely to be recurrence of his prior cancer and that they which was most probably something new that he needed to have further workup. ? Chest/abdomen/pelvis CT showed enlarging mediastinal lymphadenopathy, obstructive pneumonia right lower lobe secondary to enlarging right hilar lymphadenopathy, pulmonary metastasis, and moderate to large right pleural effusion. ? Ultrasound-guided thoracentesis was unsuccessful as patient did not have enough fluid to be drained. ?Oncologist ordered lung biopsy, but interventional radiology stated patient was very high risk for pneumothorax given his low body weight. Spoke with patient as well as his family with his approval to discuss medical information. He was told all the risks, the lung biopsy given his low weight which included pneumothorax and he decided that he would like to have some time before making a decision. Plan: -[place] for pain as needed -bone scan and tumor markers ordered -Possible lung biopsy - Consult hematology/oncology, appreciate recommendations -Will continue to monitor #Community-acquired pneumonia versus aspiration pneumonia ? Chest CT showed some obstructive pneumonia right lower lobe ? Patient has been producing some sputum today Plan: ? Start azithromycin and Rocephin [06/28/2024?] ? Will continue to monitor #Hypothyroidism -TSH 9.86, free t4 0.86 -Will increase patient's levothyroxine to 88 mcg #Hx of prior heroin use (on methadone) -Will continue patient's methadone Disposition: Patient pending decision on lung biopsy. Diet: tube feeds and pureed diet GI prophylaxis: Protonix DVT prophylaxis: SCDs Code: Full code Case disclosed with Attending Dr. Guerra and My senior Dr. Herrera PGY2. Juventino Figueroa PGY1 Senior Resident Attestation: The patient is a 63-year-old male with significant past medical history of oral cancer s/p radiation and chemotherapy 15 years ago, esophageal stricture s/p dilatation x 2, hypothyroidism, active smoker since age 11 and prior heroin use on methadone presented to ED with chief complaint of dysphagia leading to failure to thrive. This morning, patient reported that he has been hungry and wanted to eat again. He was started on Dysphagia diet. Overnight, patient was placed with PEG tube. Dietary recommendations: 1.Jevity 1.2 at 20 ml/hr x 24 hrs (do not advance). If no IV fluids, water flushes 25 ml/hr (or per MD). 2.Thiamine 100mg/day for 7 days; provide first dose at least 30 minutes before starting nutrition. 3.Multivitamins/Minerals. 4.Daily labs for P, K, and Mg; replace as needed. If no electrolytes disturbances after 24 hrs, advance 10 ml every 12 hrs to goal rate of 70ml/hr x 24 hrs. Continue with water flushes 25 ml/hr (or per MD). His vitals were fairly stable, mildly tachycardic, saturating 97% on 2 L NC. [facility] oncologist Dr. Perkins recommended getting thoracocentesis, and also lung biopsy for possible mass. The patient underwent thoracocentesis and was insufficient for any drainage. We will try to get lung biopsy done as an inpatient. After that, we will continue to increase the tube feed to achieve goal rate of 70 mL/h and discharge the patient back to SNF. I discussed with and supervised the investigator internal affairs physician involved in the care of this patient. I personally saw and examined the patient and discussed the assessment and plan with the entire medicine team, including my attending. I agree with the assessment and plan as documented above. Tejas Herrera MD PGY2 Internal Medicine
[2024-06-28] MEDS: SODIUM CHLORIDE 0.9% 1000 ML 1,000 ML 80 ML IV ×2 (11:15→22:48)
[2024-06-28] MEDS: cefTRIAXone/D5w 1gm IV premix 50 ML IV (12:41)
[2024-06-28] MEDS: AZITHROMYCIN 250 MG TABLET 500 MG PO (12:46)
[2024-06-28] MEDS: HYDROcodone/APAP 5/325 TABLET 1 TAB GT ×2 (12:47→17:04)
--- NOTE | 2024-06-28 13:33 | PC.SS ---
Patient needs a walker w/seat. The diagnosis creates mobility limitation that significantly impairs ability to participate in the patients activities of daily living either in their entirety, or in a reasonable time frame. Also the patient is able to safely use the walker and the patient?s mobility is sufficiently resolved with the use of the walker and cane has been ruled out.
--- NOTE | 2024-06-28 14:36 | ESPR_ITS ---
Documentation for date of: 06/28/24 Subjective Subjective Interval history: Patient evaluated PEG site looks good Active bowel sounds Exam Vital Signs Temp Pulse Resp BP Pulse Ox O2 Del Method O2 Flow Rate 98.0 F 102 H 20 131/92 H 90 L Nasal Cannula 3 06/28/24 11:48 06/28/24 13:51 06/28/24 13:51 06/28/24 11:48 06/28/24 13:51 06/28/24 11:48 06/28/24 13:51 Objective Labs 06/28/24 04:40 06/28/24 04:40 Labs: Laboratory Results - last 24 hr 06/28/24 06/28/24 04:40 08:40 WBC 7.6 D RBC 3.19 L Hgb 9.0 L Hct 27.9 L MCV 88 MCH 28.2 MCHC 32.3 RDW Std Deviation 42.1 Plt Count 201 Neut % (Auto) 87 H Lymph % (Auto) 9 L [place] % (Auto) 4 Eos % (Auto) 0 Baso % (Auto) 0 Neut # (Auto) 6.6 Lymph # (Auto) 0.7 L [place] # (Auto) 0.3 Eos # (Auto) 0.0 Baso # (Auto) 0.0 Immature Gran # (Auto) 0.01 H Absolute Nucleated RBC 0.00 Immature Gran % 0 Nucleated RBC % 0 PT 12.4 H INR 1.1 APTT 30.6 Sodium 133 L Potassium 4.8 D Chloride 100 Carbon Dioxide 25.0 Anion Gap 8 BUN 15 Creatinine 0.8 Estim Creat Clear Calc 56.0 L eGFR > 60 BUN/Creatinine Ratio 19 Glucose 46 L* Calculated Osmolality 264 L Calcium 8.8 Corrected Calcium 9.3 Phosphorus 3.1 Magnesium 1.5 L Total Bilirubin 0.5 AST 29 ALT 7 L Alkaline Phosphatase 107 Total Protein 7.1 Albumin 3.4 Globulin 3.7 H Albumin/Globulin Ratio 0.9 L Free T4 0.86 L Impressions Impression: # Failure to thrive # PEG placement for enteral hyperalimentation # Esophageal stricture status post endoscopic dilatation Continue current management Assessment & Plan A&P Narrative 1. History of prior tongue and lip cancer; prior surgery chemoradiation. 2. Suspected left femur mets; Enlarging mediastinal lymphadenopathy obstructive pneumonia RLL R hilar adenopathy 3. EGD esophageal dilation and PEG tube placement performed by Dr. Vazquez to improve nutrition. 4. US guided R thoracentesis to improve breathing. 5. RUL lung biopsy. Fluid cytology from thoracentesis unlikely to give needed details about the likely new cancer. Time Spent With Patient Time: Total time spent is greater than 50% in coordination of care (as documented) at patient's floor/unit and/or counseling patient:
--- NOTE | 2024-06-28 15:08 | PC.SS ---
Addendum entered by Merly Liriano 06/28/24 15:23: Family contact information: [place], family member, or [place], niece, and resides with patient Addendum entered by Merly Liriano 06/28/24 15:22: SS spoke to PT and patient will now need new home 02 as well. PT recommended HH with rollator and new 02. Pending 02 documentation for room air sats. Will send to [facility] who is contracted with insurance Original Note: Patient may discharge home today with home health. Patient has no preference. SS requested an order for a walker w/seat per patient request. [facility] is contracted and confirmed. They will coordinate delivery with patient.
[2024-06-28] MEDS: ALBUTEROL/IPRATROPIUM (Duoneb) RT SOL 3 ML NEBU INH (19:17)
[2024-06-28] MEDS: MORPHINE SULF INJ 10 MG/ML VIAL 2 MG IVP (19:54)
--- NOTE | 2024-06-28 20:43 | PC.NURSE ---
wesley to DC morphine and order dilaudid 1 mg IVP Q4 per dr. Vazquez.
[2024-06-28] MEDS: HYDROmorphone INJ 2 MG/ML VIAL 1 MG IVP (20:52)
--- NOTE | 2024-06-28 20:55 | PD.EVENT ---
Documentation for date of: 06/28/24 Event Note Event Note: Called by the nurse to evaluate the patient with abdominal pain Does have positive bowel sounds but tender to touch He got 2 mg of morphine and the pain is still there He did have placement of a gastrostomy tube yesterday roughly 24 hours ago Currently on enteral hyperalimentation 30 cc/h and there is no gastric residue Plan is CBC CMP amylase lipase and UA Stat CT scan of the abdomen pelvis with contrast Discontinue morphine sulfate Dilaudid 1 mg IV push every 4 hours as needed pain Zosyn 3.375 mg IV piggyback every 6 hours for antibiotic coverage just in case there is an element of peritonitis
--- NOTE | 2024-06-28 20:57 | XR_ITS ---
Examination: CT abdomen with intravenous contrast CT pelvis with intravenous contrast 2-D coronal reconstructions 2-D sagittal reconstructions Date and time of exam:June 28, 2024 10:[address] chest abdomen pelvis June 27, 2024 Indications: Onset severe abdominal pain today, diagnosis head and neck malignancy. CTDI: vol (mGy) 3.47 DLP: (mGycm) 211 Technique: Multiple axial sections of the abdomen and pelvis have been obtained. 64 slice high-resolution scanner used. 3 mm axial sections have been obtained, post intravenous injection 60 cc [id number] 2-D sagittal coronal reconstructions 3-D reconstructions Low dose protocols. Adjustment MA KV according to patient size, iterative reconstruction techniques Findings: There is significant right lung pneumonia with mild right pleural disease Partial visualization significant mediastinal lymphadenopathy Moderate to large right pleural effusion mild left pleural effusion Significant left base pneumonia Pneumoperitoneum Liver irregular in contour Gastrostomy tube Absent gallbladder No pancreatic mass No hydronephrosis Large amounts of air and stool throughout the colon Heavy abdominal aortic calcification no aneurysmal dilatation Contracted urinary bladder Prominent osteopenia Impression: Significantly air and stool distended colon Pneumoperitoneum, clinical correlation advised, recommend surgical consultation
[2024-06-28 21:43] LABS: Basophils % (Auto) 0 % (0-2.5); Eosinophils % (Auto) 0 % (0-10); Hematocrit 32.3 % (41.0-53.0); Hemoglobin 10.4 g/dL (13.5-16.0); Immature Granulocytes % (Auto) 0 % (0-0); Immature Granulocytes Auto 0.03 Thou/mm3 (0.00-0.00); Lymphocytes # (Auto) 0.3 Thou/mm3 (1.0-4.8); Lymphocytes % (Auto) 4 % (10-50); Mean Corpuscular HGB Conc 32.2 g/dl (31.0-37.0); Mean Corpuscular Hemoglobin 27.9 pg (25.0-35.0); Mean Corpuscular Volume 87 fL (80-100); Monocytes # (Auto) 0.3 Thou/mm3 (0.0-0.8); Monocytes % (Auto) 3 % (0-12); Neutrophils # (Auto) 8.9 Thou/mm3 (1.8-7.7); Neutrophils % (Auto) 93 % (37-80); Nucleated Red Blood Cell % 0 /100 WBC (0); Platelet Count 224 Thou/mm3 (140-440); RDW Standard Deviation 41.9 fL (35.1-43.9); Red Blood Count 3.73 Miln/mm3 (4.50-5.90); White Blood Count 9.6 Thou/mm3 (3.8-10.6)
[2024-06-28 22:13] LABS: Alanine Aminotransferase 9 U/L (10-49); Albumin, Serum 3.6 gm/dL (3.4-4.8); Albumin/Globulin Ratio 0.9 (1.2-2.2); Alkaline Phosphatase 126 U/L (46-116); Anion Gap 7 (7-16); Aspartate Amino Transferase 39 U/L (0-34); BUN/Creatinine Ratio 19 Ratio (12-20); Bilirubin,Total 0.5 mg/dL (0.3-1.2); Blood Urea Nitrogen 15 mg/dL (9-23); Calcium 9.3 mg/dL (8.3-10.6); Calcium (Corrected) 9.6 mg/dL (8.5-10.1); Carbon Dioxide 26.1 mMol/L (20.0-31.0); Chloride 97 mMol/L (98-107); Creatinine (Component) 0.8 mg/dL (0.6-1.3); Estimated Creatinine Clearance 58.8 mL/min (>60); Globulin 4.2 gm/dL (2.3-3.5); Glucose 92 mg/dL (74-106); Lipase 22 U/L (12-53); Osmolality,Calculated 261 (275-295); Potassium 4.6 mMol/L (3.4-5.1); Sodium 130 mMol/L (136-145); Total Protein 7.8 gm/dL (5.7-8.2); eGFR > 60 See Note
[2024-06-28] MEDS: LORazepam 2 MG/ML VIAL 0.5 MG IVP (22:40)
[2024-06-28 22:54] LABS: Amylase 41 U/L (30-118)
--- NOTE | 2024-06-28 23:10 | PC.NURSE ---
received a phone call from Dr. Vail to report the results of CT scan. Dr. Vail stated that the ct scan shows a pneumoperitoneum and that the pt needs a surgical consult. Dr. Garcia and Dr. Vazquez were made aware about the CT scan results and about the request for surgical consult.
--- NOTE | 2024-06-28 23:52 | PC.NURSE ---
family at bedside requesting to talk to the doctors. Dr. Hanson was made aware.
[2024-06-29] VITALS (13 sets, daily range): BP systolic 124–162; BP diastolic 88–111; PULSE 99–125; RESP 18–32; TEMP 36.4–37.2; O2SAT 88–99; BMI 14.1
[2024-06-29] MEDS: HYDROmorphone INJ 2 MG/ML VIAL 1 MG IVP ×5 (01:27→22:59)
[2024-06-29 05:58] LABS: Basophils % (Auto) 0 % (0-2.5); Eosinophils % (Auto) 0 % (0-10); Hematocrit 29.3 % (41.0-53.0); Hemoglobin 9.6 g/dL (13.5-16.0); Immature Granulocytes % (Auto) 0 % (0-0); Immature Granulocytes Auto 0.02 Thou/mm3 (0.00-0.00); Lymphocytes # (Auto) 0.2 Thou/mm3 (1.0-4.8); Lymphocytes % (Auto) 2 % (10-50); Mean Corpuscular HGB Conc 32.8 g/dl (31.0-37.0); Mean Corpuscular Volume 85 fL (80-100); Monocytes # (Auto) 0.2 Thou/mm3 (0.0-0.8); Monocytes % (Auto) 3 % (0-12); Neutrophils # (Auto) 8.2 Thou/mm3 (1.8-7.7); Neutrophils % (Auto) 95 % (37-80); Nucleated Red Blood Cell % 0 /100 WBC (0); Platelet Count 215 Thou/mm3 (140-440); RDW Standard Deviation 41.1 fL (35.1-43.9); Red Blood Count 3.43 Miln/mm3 (4.50-5.90); White Blood Count 8.7 Thou/mm3 (3.8-10.6)
[2024-06-29 06:46] LABS: Alanine Aminotransferase 7 U/L (10-49); Albumin, Serum 3.4 gm/dL (3.4-4.8); Albumin/Globulin Ratio 0.9 (1.2-2.2); Alkaline Phosphatase 115 U/L (46-116); Anion Gap 8 (7-16); Aspartate Amino Transferase 25 U/L (0-34); BUN/Creatinine Ratio 23 Ratio (12-20); Bilirubin,Total 0.5 mg/dL (0.3-1.2); Blood Urea Nitrogen 16 mg/dL (9-23); Calcium (Corrected) 9.5 mg/dL (8.5-10.1); Carbon Dioxide 24.6 mMol/L (20.0-31.0); Chloride 96 mMol/L (98-107); Creatinine (Component) 0.7 mg/dL (0.6-1.3); Estimated Creatinine Clearance 67.2 mL/min (>60); Globulin 3.8 gm/dL (2.3-3.5); Glucose 77 mg/dL (74-106); Magnesium 1.9 mg/dL (1.6-2.6); Osmolality,Calculated 259 (275-295); Potassium 4.3 mMol/L (3.4-5.1); Sodium 129 mMol/L (136-145); Total Protein 7.2 gm/dL (5.7-8.2); eGFR > 60 See Note
[2024-06-29] MEDS: PANTOPRAZOLE INJ 40 MG VIAL IVP (09:07)
--- NOTE | 2024-06-29 10:08 | XR_ITS ---
Examination: AP chest single view Technique: AP portable semiupright chest single view Exam date and time: June 29, 2024 1032 hrs. Comparison June 26, 2024 Indications: Shortness of breath this week Findings: Extensive bilateral lung opacity Prominent right mediastinum, please see the CT chest report June 27, 2024 Enlarged cardiac contour with ectatic thoracic aorta prominent vascular congestion Impression: [id number] heart failure Prominent right mediastinum, please see the CT chest report June 27, 2024 Probable obstructive pneumonia at the right lung base
--- NOTE | 2024-06-29 10:52 | ESPR_ITS ---
<Statement entered by Yash Guerra MD - 07/02/24 12:21> I reviewed above note and agree with findings and plans. I have also personally examined the patient with medicine team and went over assessment and plan with medical team including internet designer and resident physician. Documentation for date of: 06/29/24 Subjective Subjective Interval history: Patient was seen at bedside this morning. Overnight patient developed acute abdominal pain for which he was given [address] of the abdomen was ordered. The CT of the abdomen and that showed that the patient had pneumoperitoneum and general surgeon was consulted. General surgeon stated that pneumoperitoneum is usually seen with patients who have PEG tube placed and that there was no need for surgical intervention at this time. GI specialist also stated that PEG tube will be taken out today. Had a goals of care discussion with patient's family given the patient's deterioration. The patient's wishes and as well as his family members was to not pursue any more aggressive interventions at this time and to change his CODE STATUS from full code to DNR/DNI. At this time we also discussed the patient's poor prognosis after speaking to the oncologist who also agreed the patient's prognosis was very poor given his stage IV cancer. Family mentioned that they had spoken with her oncologist and that they agreed that the patient's prognosis was very poor therefore they would like the patient to be more comfortable and to avoid any further aggressive treatment at this time. PEG tube will be remaining in place and patient will not be taken for another procedure to take it out. Exam Vital Signs Temp Pulse Resp BP Pulse Ox O2 Del Method O2 Flow Rate 99.0 F 125 H 20 162/102 H 98 High Flow Nasal Cannula 06/29/24 07:57 06/29/24 10:19 06/29/24 10:19 06/29/24 07:57 06/29/24 10:19 06/29/24 07:57 06/29/24 10:19 FiO2 75 06/29/24 10:19 Narrative Exam General: A/O x3, no acute distress, thin frail male, temporal wasting, resting in bed Eyes: PERRL, EOMI. Anicteric, vision grossly intact. Ears: No ear pain, no ear discharge, Hearing grossly intact. Nose: No nasal discharge. Mouth/Throat: Dry mucous membranes, no dentation,no redness, no lesions. Neck: Neck supple, non-tender, no cervical lymphadenopathy. Lungs: Clear JAVIER to auscultation and percussion, No accessory muscle use. Cardio: Normal S1/S2, regular rhythm, no murmurs, no JVD Abdomen: mildly tense and tender, no palpable masses, peristalsis present, no guarding or rebound. PEG tube in place with no discharge and wrapped with abdominal binder. Extremities: Symmetrical, no significant deformities, no peripheral edema , L lower leg tender to mild palpation on lateral aspect of upper L Lower leg with a scar from previous cut (no surgery), peripheral pulses presents. Skin: No rashes, no lesions, warm to touch. Neuro: No focal neurological deficits. motor and sensory intact Objective Labs 06/29/24 05:25 06/29/24 05:25 Labs: Laboratory Results - last 24 hr 06/28/24 06/29/24 21:09 05:25 WBC 9.6 8.7 RBC 3.73 L 3.43 L Hgb 10.4 L 9.6 L Hct 32.3 L 29.3 L MCV 87 85 MCH 27.9 28.0 MCHC 32.2 32.8 RDW Std Deviation 41.9 41.1 Plt Count 224 215 Neut % (Auto) 93 H 95 H Lymph % (Auto) 4 L 2 L [place] % (Auto) 3 3 Eos % (Auto) 0 0 Baso % (Auto) 0 0 Neut # (Auto) 8.9 H 8.2 H Lymph # (Auto) 0.3 L 0.2 L [place] # (Auto) 0.3 0.2 Eos # (Auto) 0.0 0.0 Baso # (Auto) 0.0 0.0 Immature Gran # (Auto) 0.03 H 0.02 H Absolute Nucleated RBC 0.00 0.00 Immature Gran % 0 0 Nucleated RBC % 0 0 Sodium 130 L 129 L Potassium 4.6 4.3 Chloride 97 L 96 L Carbon Dioxide 26.1 24.6 Anion Gap 7 8 BUN 15 16 Creatinine 0.8 0.7 Estim Creat Clear Calc 58.8 L 67.2 eGFR > 60 > 60 BUN/Creatinine Ratio 19 23 H Glucose 92 D 77 Calculated Osmolality 261 L 259 L Calcium 9.3 9.0 Corrected Calcium 9.6 9.5 Phosphorus 3.0 Magnesium 1.9 Total Bilirubin 0.5 0.5 AST 39 H 25 ALT 9 L 7 L Alkaline Phosphatase 126 H 115 Total Protein 7.8 7.2 Albumin 3.6 3.4 Globulin 4.2 H 3.8 H Albumin/Globulin Ratio 0.9 L 0.9 L Amylase 41 Lipase 22 Quality Measures Quality Measures none Assessment & Plan Assessment Current Active Medications: Generic Name Dose Route Start Last Admin Trade Name Freq PRN Reason Stop Dose Admin Acetaminophen 650 mg 06/26/24 15:36 Acetaminophen 325 Mg Tablet PO 07/26/24 15:35 Q6H PRN pain(1-3) and Fever >100.4 Hydrocodone Bitart/Acetaminophen 1 tab 06/28/24 12:15 06/28/24 17:04 Hydrocodone/Apap 5/325 Tablet GT 07/03/24 12:04 1 tab Q4HR PRN Administration PAIN SCALE 4-10(Mod-Sev Albuterol/Ipratropium 3 ml 06/28/24 16:21 06/28/24 19:17 Albuterol/Ipratropium (Duoneb) Rt Yuridia 3 Ml Nebu INH 07/28/24 16:20 3 ml Q2HR PRN Administration SHORTNESS OF BREATH OR WHEEZE Methadone 100 Mg 0 ea 06/27/24 11:00 06/29/24 09:25 Cups PO 07/27/24 10:59 Not Given DAILY ARNOL Dextrose 25 ml 06/27/24 07:30 06/28/24 05:03 Dextrose 50%-Water Inj 50 Ml Syringe IV 07/27/24 07:29 25 ml Q15MIN PRN Administration BG 50-70 responsive npo pt Dextrose 50 ml 06/27/24 07:30 06/28/24 00:10 Dextrose 50%-Water Inj 50 Ml Syringe IV 07/27/24 07:29 50 ml Q15MIN PRN Administration BG <50 OR BG <70 & pt unresponsive Glucagon 1 mg 06/27/24 07:30 Glucagon Inj 1 Mg Vial IM Q15MIN PRN BG <70, and no IV access Hydromorphone HCl 1 mg 06/28/24 20:45 06/29/24 09:07 Hydromorphone Inj 2 Mg/Ml Vial IVP 07/03/24 20:44 1 mg Q4HR PRN Administration PAIN Protocol Sodium Chloride 1,000 mls @ 80 mls/hr 06/27/24 09:15 06/28/24 22:48 Ns IV 07/27/24 09:14 80 mls/hr .[id number] ARNOL Administration Piperacillin/Tazobactam/Dextrose 3.375 gm in 50 mls @ 12.5 mls/hr 06/29/24 07:32 Zosyn IV 07/06/24 07:31 Q8HR ARNOL Azithromycin 500 mg/ Sodium 250 mls @ 250 mls/hr 06/29/24 09:00 Chloride IV 07/04/24 09:59 QDAY ARNOL Levothyroxine Sodium 88 mcg 06/29/24 06:00 06/29/24 06:17 Levothyroxine Sodium 88 Mcg Tablet PO 07/29/24 05:59 Not Given ACBR ARNOL Lorazepam 0.5 mg 06/28/24 19:39 06/28/24 22:40 Lorazepam 2 Mg/Ml Vial IVP 07/03/24 19:38 0.5 mg Q8HR PRN Administration Anxiety or agitation Multivitamins/Minerals 15 ml 06/28/24 05:50 06/29/24 09:24 Multivitamin 15 Ml Udc GT 07/28/24 05:49 Not Given QDAY ARNOL Ondansetron HCl 4 mg 06/26/24 15:36 Ondansetron Inj 2 Mg/Ml Inj 2 Ml IV 07/26/24 15:35 Q6H PRN NAUSEA OR VOMITING Protocol Pantoprazole Sodium 40 mg 06/27/24 09:15 06/29/24 09:07 Pantoprazole Inj 40 Mg Vial IVP 07/27/24 09:14 40 mg QDAY ARNOL Administration Pharmacy Consult 1 each 06/26/24 20:00 Pharmacy To Consult Pneumovacc XX 07/26/24 19:59 PRN PRN CONSULT Sennosides 1 tab 06/26/24 15:36 Senna Tablet PO 07/26/24 15:35 QDAY PRN constipation Protocol Thiamine HCl 100 mg 06/28/24 21:00 06/29/24 09:25 Thiamine 100 Mg Tablet GT 07/28/24 20:59 Not Given BID ARNOL Plan 63-year-old male with past medical history of oral cancer s/p radiation and chemotherapy (underneath the tongue 15 years ago and lower lip 4 years ago), esophageal strictures s/p dilations x 2, hypothyroidism, active smoker (smoked since 11 years old) and prior heroin use (on methadone) was admitted to the hospital on 06/26/2024 for dysphagia, failure to thrive, and left leg pain. #Goals of care discussion Had a goals of care discussion with patient's family given the patient's deterioration. The patient's wishes and as well as his family members was to not pursue any more aggressive interventions at this time and to change his CODE STATUS from full code to DNR/DNI. At this time we also discussed the patient's poor prognosis after speaking to the oncologist who also agreed the patient's prognosis was very poor given his stage IV cancer. Family mentioned that they had spoken with her oncologist and that they agreed that the patient's prognosis was very poor therefore they would like the patient to be more comfortable and to avoid any further aggressive treatment at this time. ? Referral to hospice ordered ? Patient will pursue hospice #Pneumoperitoneum ? Abdomen CT showed pneumoperitoneum which is commonly seen after PEG tube placement. ? Patient's abdomen was mildly tense and tender, but his general surgeon stated that there was no need for surgical intervention at this time. ? Patient's family also decided that they did not want to pursue any more aggressive interventions and would like to pursue hospice for now Plan: ? Started Zosyn [06/29/2024?] ? Will continue to monitor #Dysphagia #Esophageal stricture s/p dilation #Failure to thrive #Hx of esophageal stricture s/p dilation x 2 #protein calorie malnutrition #cachexia #s/p PEG tube ? Patient states today he has been having trouble passing his food that he thinks they get stuck in his throat. ? DDx esophageal strictures versus esophageal malignancy -BMI -14.2 ? EGD done yesterday showed patient had esophageal stricture which was dilated and he had successful PEG tube placed. Plan: ? tube feeds and pureed diet ? GI consulted, particular lesions ? Refer to registered dietitian ? Refer to speech therapist ? Will continue to monitor #Left lower leg pain #Left femur osteolytic lesions #Mediastinal lymphadenopathy #Hilar lymphadenopathy #Pulmonary nodules possible metastasis #Right pleural effusion #Hx of oral cancer s/p radiatation and chemo ? Patient states that he has been unable to bear weight on his left lower leg as it is very painful ?DDx bone metastasis versus multiple myeloma in the setting of high globulin ? Femur x-ray showed osteolytic lesion destroying cortex of proximal femur shaft measuring 36 mm and smaller loculated lesion of the subtrochanteric region of the left femur measuring 13 mm ? Spoke with patient's oncologist who stated that it was less likely to be recurrence of his prior cancer and that they which was most probably something new that he needed to have further workup. ? Chest/abdomen/pelvis CT showed enlarging mediastinal lymphadenopathy, obstructive pneumonia right lower lobe secondary to enlarging right hilar lymphadenopathy, pulmonary metastasis, and moderate to large right pleural effusion. ? Ultrasound-guided thoracentesis was unsuccessful as patient did not have enough fluid to be drained. ?Oncologist ordered lung biopsy, but interventional radiology stated patient was very high risk for pneumothorax given his low body weight. Spoke with patient as well as his family with his approval to discuss medical information. He was told all the risks, the lung biopsy given his low weight which included pneumothorax and he decided that he would like to have some time before making a decision. ?Oncology stated that patient's prognosis was very poor and recommended to not pursue lung biopsy at this time. Plan: -[facility] [place] for pain as needed - Consult hematology/oncology, appreciate recommendations -Will continue to monitor #Community-acquired pneumonia versus aspiration pneumonia ? Chest CT showed some obstructive pneumonia right lower lobe ? Patient has been producing some sputum today Plan: ? Continue azithromycin and Rocephin [06/28/2024?] -Started Zosyn ? Will continue to monitor #Hypothyroidism -TSH 9.86, free t4 0.86 -Will increase patient's levothyroxine to 88 mcg #Hx of prior heroin use (on methadone) -Will continue patient's methadone Disposition: Patient pending hospice. Diet: pureed diet GI prophylaxis: Protonix DVT prophylaxis: SCDs Code: Full code Case disclosed with Attending Dr. Guerra and My senior Dr. Herrera PGY2. Juventino Figueroa PGY1 Senior Resident Attestation: The patient is a 63-year-old male with significant past medical history of oral cancer s/p radiation and chemotherapy 15 years ago, esophageal stricture s/p dilatation x 2, hypothyroidism, active smoker since age 11 and prior heroin use on methadone presented to ED with chief complaint of dysphagia leading to failure to thrive. His vitals were fairly stable, mildly tachycardic, saturating 94% on high flow NC. Radio oncologist Dr. Perkins recommended getting lung biopsy would be futile at this point. Goals of care discussion was done with his son and all the close relatives. They understood the patient prognosis and wished to proceed with hospice. The family members will further decide on either hospice or home with hospice by tomorrow and he will be discharged. I discussed with and supervised the internet designer physician involved in the care of this patient. I personally saw and examined the patient and discussed the assessment and plan with the entire medicine team, including my attending. I agree with the assessment and plan as documented above. Tejas Herrera MD PGY2 Internal Medicine
[2024-06-29] MEDS: AZITHROMYCIN INJ 500 MG in SODIUM CHLORIDE 0.9% 250 ML 250 ML 250 MG IV (10:58)
--- NOTE | 2024-06-29 11:43 | PC.SS ---
SS met with patient's genie Hutchins and informed her of GOC meeting, Liset has agreed to meet at 1300. SS inquired about POA with genie Hutchins and she reported NOT having POA due to patient still being able to consent and make decisions for himself. Genie Martinezae requesting pain management medication for patient. RUBEN Yates informed. GME Resident Jean Paul informed family has agreed for 1300 GO meeting. GME Resident Jean Paul requesting GO meeting for 1300. GME Resident Jean Paul requested SS speak to genie Hutchins regarding POA.
[2024-06-29] MEDS: PIPER/TAZO 3.375 GM 3.375 GM/50 ML BAG IV ×3 (12:46→21:27)
[2024-06-29] MEDS: DEXTROSE 50%-WATER INJ 50 ML SYRINGE 25 ML IV ×2 (13:05→21:32)
--- NOTE | 2024-06-29 13:19 | PD.SURCONS ---
HPI Consult details Consult date: 06/29/24 Reason for consultation narrative: Pneumoperitoneum History of present illness: I was asked to evaluate this patient at the request of Dr. Vazquez for pneumoperitoneum. Patient with history of oropharyngeal malignancy and dysphagia underwent placement of PEG tube. He was noted to have abdominal distention and a CT scan revealed pneumoperitoneum. CT scan images reviewed and radiologist interpretation noted, he was noted to have significantly air and stool distended large intestine, significant pneumonia and large pleural effusion. Meds Home Medications and Allergies Home Medications ?Medication ?Instructions ?Recorded ?Confirmed ?Type hydrocodone 10 mg-acetaminophen 1 tab PO Q4H PRN Pain, Severe 02/08/23 06/27/24 History 325 mg tablet levothyroxine 25 mcg/mL oral 50 mcg PO QDAY 02/08/23 06/27/24 History solution pantoprazole 40 mg tablet,delayed 40 mg PO BID 08/07/23 06/27/24 History release methadone 10 mg/mL oral concentrate 100 mg PO QDAY 06/27/24 06/27/24 History Allergies Allergy/AdvReac Type Severity Reaction Status Date / Time No Known Allergies Allergy Verified 06/27/24 19:03 Exam Vital Signs Temp Pulse Resp BP Pulse Ox O2 Del Method O2 Flow Rate 98.4 F 120 H 20 124/88 H 98 High Flow Nasal Cannula 06/29/24 12:00 06/29/24 12:00 06/29/24 10:19 06/29/24 12:00 06/29/24 10:19 06/29/24 07:57 06/29/24 10:19 FiO2 75 06/29/24 10:19 Constitutional Constitutional: no acute distress Routine Abdominal Exam Abdominal: Present soft Comments: Abdomen is soft but distended, PEG tube in place Assessment & Plan Additional Assessment Additional comments: Status post placement of PEG tube. Pneumoperitoneum is expected sequela of PEG tube placement. His symptoms are likely related to large pleural effusion, significant pneumonia and significant air and stool distended colon Plan No indications for surgical intervention. May require enema and/or laxatives to assist evacuating large amount of stool from colon and antibiotic treatment for pneumonia. May require thoracentesis if indicated.
--- NOTE | 2024-06-29 13:38 | PC.SS ---
Body Technician/Painter (ASHLEY) Asmita met with Dr. Herrera and patient's family: aunt, Nicole; niece, Maria Teresa; ex-partner, Dimitris; son, Mike; and cousin, Juliann. Patient was asleep. Dr. Herrera provided medical update with reference to Dr. Perkins's recommendations. Dr. Herrera informed family that at this time hospice would be recommended. ASHLEY explained hospice at home vs. SNF. Family requested time to discuss disposition. However, it was noted that the hospice company would be [facility]. ASHLEY updated Kristie who will follow up with family.
[2024-06-29] MEDS: SODIUM CHLORIDE 0.9% 1000 ML 1,000 ML 80 ML IV (14:43)
--- NOTE | 2024-06-29 15:43 | ESPR_ITS ---
Documentation for date of: 06/29/24 Subjective Subjective Interval history: Pneumoperitoneum which is not unusual post PEG tube placement after reviewing the CT scan of the abdomen and pelvis Patient does not have an acute abdomen Case discussed with the operating room surgical technologist and we both agree In the meantime patient has been made comfort care Patient did not want the PEG tube out but since he is comfort care regularly with alone I canceled the procedure Exam Vital Signs Temp Pulse Resp BP Pulse Ox O2 Del Method O2 Flow Rate 98.4 F 120 H 20 124/88 H 98 High Flow Nasal Cannula 06/29/24 12:00 06/29/24 12:00 06/29/24 10:19 06/29/24 12:00 06/29/24 10:19 06/29/24 07:57 06/29/24 10:19 FiO2 75 06/29/24 10:19 Constitutional Comments: Sleeping after pain injection Routine Respiratory Exam Comments: Decreased breath sounds Objective Labs 06/29/24 05:25 06/29/24 05:25 Labs: Laboratory Results - last 24 hr 06/28/24 06/29/24 21:09 05:25 WBC 9.6 8.7 RBC 3.73 L 3.43 L Hgb 10.4 L 9.6 L Hct 32.3 L 29.3 L MCV 87 85 MCH 27.9 28.0 MCHC 32.2 32.8 RDW Std Deviation 41.9 41.1 Plt Count 224 215 Neut % (Auto) 93 H 95 H Lymph % (Auto) 4 L 2 L [place] % (Auto) 3 3 Eos % (Auto) 0 0 Baso % (Auto) 0 0 Neut # (Auto) 8.9 H 8.2 H Lymph # (Auto) 0.3 L 0.2 L [place] # (Auto) 0.3 0.2 Eos # (Auto) 0.0 0.0 Baso # (Auto) 0.0 0.0 Immature Gran # (Auto) 0.03 H 0.02 H Absolute Nucleated RBC 0.00 0.00 Immature Gran % 0 0 Nucleated RBC % 0 0 Sodium 130 L 129 L Potassium 4.6 4.3 Chloride 97 L 96 L Carbon Dioxide 26.1 24.6 Anion Gap 7 8 BUN 15 16 Creatinine 0.8 0.7 Estim Creat Clear Calc 58.8 L 67.2 eGFR > 60 > 60 BUN/Creatinine Ratio 19 23 H Glucose 92 D 77 Calculated Osmolality 261 L 259 L Calcium 9.3 9.0 Corrected Calcium 9.6 9.5 Phosphorus 3.0 Magnesium 1.9 Total Bilirubin 0.5 0.5 AST 39 H 25 ALT 9 L 7 L Alkaline Phosphatase 126 H 115 Total Protein 7.8 7.2 Albumin 3.6 3.4 Globulin 4.2 H 3.8 H Albumin/Globulin Ratio 0.9 L 0.9 L Amylase 41 Lipase 22 Impressions Impression: # End-of-life care/comfort care # Pneumoperitoneum secondary to PEG procedure and not a perforation of the intra-abdominal viscus Continue supportive care Assessment & Plan A&P Narrative 1. History of prior tongue and lip cancer; prior surgery chemoradiation. 2. Suspected left femur mets; Enlarging mediastinal lymphadenopathy obstructive pneumonia RLL R hilar adenopathy 3. EGD esophageal dilation and PEG tube placement performed by Dr. Vazquez to improve nutrition. 4. US guided R thoracentesis to improve breathing. 5. RUL lung biopsy. Fluid cytology from thoracentesis unlikely to give needed details about the likely new cancer. Time Spent With Patient Time: Total time spent is greater than 50% in coordination of care (as documented) at patient's floor/unit and/or counseling patient:
[2024-06-29] MEDS: LORazepam 2 MG/ML VIAL 0.5 MG IVP (19:32)
--- NOTE | 2024-06-29 21:42 | PC.NURSE ---
BS [address] DR[address] Leija aware no glucose stat lab a this time BS will be rechecked in 15 minutes see mar. New order for IV dextrose.
[2024-06-29] MEDS: DEXTROSE 5%-WATER 1,000 ML 80 ML IV (21:53)
[2024-06-29] MEDS: DEXTROSE 5%-NS 1,000 ML 80 ML IV (23:08)
[2024-06-30] VITALS (11 sets, daily range): BP systolic 128–147; BP diastolic 91–104; PULSE 107–120; RESP 16–22; TEMP 36.1–37.1; O2SAT 94–98
[2024-06-30] MEDS: HYDROmorphone INJ 2 MG/ML VIAL 1 MG IVP ×6 (03:10→22:50)
[2024-06-30 05:30] LABS: Basophils % (Auto) 0 % (0-2.5); Eosinophils % (Auto) 0 % (0-10); Hematocrit 27.7 % (41.0-53.0); Hemoglobin 9.2 g/dL (13.5-16.0); Immature Granulocytes % (Auto) 0 % (0-0); Immature Granulocytes Auto 0.04 Thou/mm3 (0.00-0.00); Lymphocytes # (Auto) 0.7 Thou/mm3 (1.0-4.8); Lymphocytes % (Auto) 7 % (10-50); Mean Corpuscular HGB Conc 33.2 g/dl (31.0-37.0); Mean Corpuscular Hemoglobin 28.3 pg (25.0-35.0); Mean Corpuscular Volume 85 fL (80-100); Monocytes # (Auto) 0.5 Thou/mm3 (0.0-0.8); Monocytes % (Auto) 5 % (0-12); Neutrophils # (Auto) 8.6 Thou/mm3 (1.8-7.7); Neutrophils % (Auto) 87 % (37-80); Nucleated Red Blood Cell % 0 /100 WBC (0); Platelet Count 238 Thou/mm3 (140-440); RDW Standard Deviation 41.6 fL (35.1-43.9); Red Blood Count 3.25 Miln/mm3 (4.50-5.90); White Blood Count 9.8 Thou/mm3 (3.8-10.6)
[2024-06-30] MEDS: PIPER/TAZO 3.375 GM 3.375 GM/50 ML BAG IV ×3 (05:53→21:15)
[2024-06-30] MEDS: LORazepam 2 MG/ML VIAL 0.5 MG IVP ×4 (05:53→23:07)
[2024-06-30 06:26] LABS: Alanine Aminotransferase < 7 U/L (10-49); Albumin/Globulin Ratio 0.9 (1.2-2.2); Alkaline Phosphatase 98 U/L (46-116); Anion Gap 7 (7-16); Aspartate Amino Transferase 22 U/L (0-34); BUN/Creatinine Ratio 27 Ratio (12-20); Bilirubin,Total 0.4 mg/dL (0.3-1.2); Blood Urea Nitrogen 19 mg/dL (9-23); Calcium (Corrected) 9.8 mg/dL (8.5-10.1); Carbon Dioxide 25.6 mMol/L (20.0-31.0); Chloride 99 mMol/L (98-107); Creatinine (Component) 0.7 mg/dL (0.6-1.3); Globulin 3.5 gm/dL (2.3-3.5); Glucose 80 mg/dL (74-106); Magnesium 1.8 mg/dL (1.6-2.6); Osmolality,Calculated 265 (275-295); Sodium 132 mMol/L (136-145); Total Protein 6.5 gm/dL (5.7-8.2); eGFR > 60 See Note
--- NOTE | 2024-06-30 09:18 | PC.SS ---
Addendum entered by [facility] 06/30/24 17:36: SS informed Paola and Maria Teresa at bedside patient's discharge to be held at this time. Addendum entered by [facility] 06/30/24 17:06: SS contacted [facility] [phone] to inform her discharge was being held until tomorrow due to their agency not having their medication available for discharge. Juliann asked family-Paola or Liset to be informed of discharge being held. She also stated Dr. Perkins would be present at bedside 07/01/24 to consult with attending doctor. Patient was titrated to 5L on oxygen. RUBEN Law contacted to confirm medication need for discharge. Pain medication was not listed. contacted Juliann to confirm medication need, as pain medication was not being sent with patient at discharge. Juliann stated as a hospice agency, a relative to patient, and admin on calll, she did not feel comfortable having patient sent home without medication. Juliann stated if medication is not prescribed, she would be connecting with Dr. Perkins for a prescription. If needed, she stated she would request a 3 way call with the attending doctor, Dr. Perkins, and herself. Juliann stated she would be connecting with family to advocate to hold the discharge. Dr. Heredia was informed and would review patient's chart. preparation plant supervisor Ivone was consulted, at this time the discharge is being held due to hospice agency not having comfort care medication for patient. Addendum entered by [facility] 06/30/24 09:55: Dr. Heredia informed of [facility] request, transitioning patient to sublingual medication, 2 days supply of medication, and titrating patient to 5L flow oxygen. Patient currently on high flow, 20L. Dr. Heredia to consult with RT. Addendum entered by [facility] 06/30/24 09:45: Phone call received from [facility], patient has been accepted. Juliann stated the following DME was ordered for patient: Hospital bed, over bed table, briefs, oral swabs, and suction machine. Juliann has requested medications be transitioned to sublingual and a 2 days worth of supply of patient's medication. Juliann stated due to the holiday they are unable to acquire medication for patient at this time. Juliann also requested patient's oxygen to be titrated and home oxygen can be ordered (5L). SS to consult with GME resident. [facility] direct line: [phone] Original Note: Hospice referral submitted to [facility], pending acceptance. SS to follow up.
[2024-06-30] MEDS: PANTOPRAZOLE INJ 40 MG VIAL IVP (10:04)
[2024-06-30] MEDS: AZITHROMYCIN INJ 500 MG in SODIUM CHLORIDE 0.9% 250 ML 250 ML 250 MG IV (10:05)
[2024-06-30] MEDS: SCOPOLAMINE 1 MG TDSY TOP (10:50)
--- NOTE | 2024-06-30 12:25 | PC.NURSE ---
endo staff in room preparing for peg tube removal
--- NOTE | 2024-06-30 12:53 | PC.NURSE ---
endo nurse and dr. gutierrez completed procedure. pt asleep and appears comfortable, updated family in waiting room
--- NOTE | 2024-06-30 14:50 | PC.NURSE ---
and here to see pt, pt currently on 10L/min oxymask, decreased down to 5L/min per md request. md to come see pt to reassess
--- NOTE | 2024-06-30 14:50 | PC.NURSE ---
and here to see pt, pt currently on 10L/min oxymask, decreased down to 5L/min per md request. md to come see pt to reassess
[2024-06-30] MEDS: DEXTROSE 5%-NS 1,000 ML 80 ML IV (14:56)
--- NOTE | 2024-06-30 17:59 | ESPR_ITS ---
<Statement entered by Yash Guerra MD - 07/07/24 16:25> I reviewed above note and agree with findings and plans. I have also personally examined the patient with medicine team and went over assessment and plan with medical team including product managent intern and resident physician. Documentation for date of: 06/30/24 Subjective Subjective Interval history: Patient was seen at bedside this morning. Had discussion with family about patient wanting to get PEG tube taken out. Asked patient if he wanted to have the PEG tube taken out, to which she answered that yes he wanted it to be taken out as he provided a lot of discomfort for him. Spoke with GI specialist who then took PEG tube out. Patient was stable afterwards and resting peacefully. No other complaints at this time. Pending hospice before discharge. Exam Vital Signs Temp Pulse Resp BP Pulse Ox O2 Del Method O2 Flow Rate 98.2 F 110 H 19 146/100 H 98 High Flow Nasal Cannula 15 06/30/24 16:00 06/30/24 16:00 06/30/24 16:00 06/30/24 16:00 06/30/24 16:00 06/30/24 16:00 06/30/24 16:00 FiO2 50 06/30/24 16:00 Narrative Exam General: A/O x3, mild discomfort due to pain, thin frail male, temporal wasting, resting in bed Eyes: PERRL, EOMI. Anicteric, vision grossly intact. Ears: No ear pain, no ear discharge, Hearing grossly intact. Nose: No nasal discharge. Mouth/Throat: Dry mucous membranes, no dentation,no redness, no lesions. Neck: Neck supple, non-tender, no cervical lymphadenopathy. Lungs: Crackles JAVIER, No accessory muscle use. Cardio: Normal S1/S2, regular rhythm, no murmurs, no JVD Abdomen: mildly tense and tender, no palpable masses, peristalsis present, no guarding or rebound. Extremities: Symmetrical, no significant deformities, no peripheral edema , peripheral pulses presents. Skin: No rashes, no lesions, warm to touch. Neuro: No focal neurological deficits. motor and sensory intact Objective Labs 06/30/24 05:12 06/30/24 05:12 Labs: Laboratory Results - last 24 hr 06/30/24 05:12 WBC 9.8 RBC 3.25 L Hgb 9.2 L Hct 27.7 L MCV 85 MCH 28.3 MCHC 33.2 RDW Std Deviation 41.6 Plt Count 238 Neut % (Auto) 87 H Lymph % (Auto) 7 L Meagher % (Auto) 5 Eos % (Auto) 0 Baso % (Auto) 0 Neut # (Auto) 8.6 H Lymph # (Auto) 0.7 L Meagher # (Auto) 0.5 Eos # (Auto) 0.0 Baso # (Auto) 0.0 Immature Gran # (Auto) 0.04 H Absolute Nucleated RBC 0.00 Immature Gran % 0 Nucleated RBC % 0 Sodium 132 L Potassium 4.0 Chloride 99 Carbon Dioxide 25.6 Anion Gap 7 BUN 19 Creatinine 0.7 Estim Creat Clear Calc 64.0 eGFR > 60 BUN/Creatinine Ratio 27 H Glucose 80 Calculated Osmolality 265 L Calcium 9.0 Corrected Calcium 9.8 Magnesium 1.8 Total Bilirubin 0.4 AST 22 ALT < 7 L Alkaline Phosphatase 98 Total Protein 6.5 Albumin 3.0 L Globulin 3.5 Albumin/Globulin Ratio 0.9 L Quality Measures Quality Measures none Assessment & Plan Assessment Current Active Medications: Generic Name Dose Route Start Last Admin Trade Name Freq PRN Reason Stop Dose Admin Acetaminophen 650 mg 06/26/24 15:36 Acetaminophen 325 Mg Tablet PO 07/26/24 15:35 Q6H PRN pain(1-3) and Fever >100.4 Hydrocodone Bitart/Acetaminophen 1 tab 06/28/24 12:15 06/28/24 17:04 Hydrocodone/Apap 5/325 Tablet GT 07/03/24 12:04 1 tab Q4HR PRN Administration PAIN SCALE 4-10(Mod-Sev Albuterol/Ipratropium 3 ml 06/28/24 16:21 06/28/24 19:17 Albuterol/Ipratropium (Duoneb) Rt Yuridia 3 Ml Nebu INH 07/28/24 16:20 3 ml Q2HR PRN Administration SHORTNESS OF BREATH OR WHEEZE Methadone 100 Mg 0 ea 06/27/24 11:00 06/30/24 10:11 Cups PO 07/27/24 10:59 Not Given DAILY ARNOL Dextrose 25 ml 06/27/24 07:30 06/29/24 21:32 Dextrose 50%-Water Inj 50 Ml Syringe IV 07/27/24 07:29 25 ml Q15MIN PRN Administration BG 50-70 responsive npo pt Dextrose 50 ml 06/27/24 07:30 06/28/24 00:10 Dextrose 50%-Water Inj 50 Ml Syringe IV 07/27/24 07:29 50 ml Q15MIN PRN Administration BG <50 OR BG <70 & pt unresponsive Glucagon 1 mg 06/27/24 07:30 Glucagon Inj 1 Mg Vial IM Q15MIN PRN BG <70, and no IV access Hydromorphone HCl 1 mg 06/28/24 20:45 06/30/24 17:33 Hydromorphone Inj 2 Mg/Ml Vial IVP 07/03/24 20:44 1 mg Q4HR PRN Administration PAIN Protocol Piperacillin/Tazobactam/Dextrose 3.375 gm in 50 mls @ 12.5 mls/hr 06/29/24 07:32 06/30/24 13:37 Zosyn IV 07/06/24 07:31 12.5 mls/hr Q8HR ARNOL Administration Azithromycin 500 mg/ Sodium 250 mls @ 250 mls/hr 06/29/24 09:00 06/30/24 10:05 Chloride IV 07/04/24 09:59 250 mls/hr QDAY ARNOL Administration Dextrose/Sodium Chloride 1,000 mls @ 80 mls/hr 06/30/24 14:30 06/30/24 14:56 D5-Ns IV 07/30/24 14:29 80 mls/hr .[id number] ARNOL Administration Lansoprazole 30 mg 07/01/24 09:00 Lansoprazole 30 Mg Tab.Rap. GT 07/31/24 08:59 QDAY ARNOL Levothyroxine Sodium 88 mcg 06/29/24 06:00 06/30/24 05:45 Levothyroxine Sodium 88 Mcg Tablet PO 07/29/24 05:59 Not Given ACBR ARNOL Lorazepam 0.5 mg 06/28/24 19:39 06/30/24 15:04 Lorazepam 2 Mg/Ml Vial IVP 07/03/24 19:38 0.5 mg Q8HR PRN Administration Anxiety or agitation Multivitamins/Minerals 15 ml 06/28/24 05:50 06/30/24 10:10 Multivitamin 15 Ml Udc GT 07/28/24 05:49 Not Given QDAY ARNOL Ondansetron HCl 4 mg 06/26/24 15:36 Ondansetron Inj 2 Mg/Ml Inj 2 Ml IV 07/26/24 15:35 Q6H PRN NAUSEA OR VOMITING Protocol Pharmacy Consult 1 each 06/26/24 20:00 Pharmacy To Consult Pneumovacc XX 07/26/24 19:59 PRN PRN CONSULT Scopolamine 1 mg 06/30/24 10:30 06/30/24 10:50 Scopolamine 1 Mg Tdsy TOP 07/30/24 10:29 1 mg Q3D ARNOL Administration Sennosides 1 tab 06/26/24 15:36 Senna Tablet PO 07/26/24 15:35 QDAY PRN constipation Protocol Thiamine HCl 100 mg 06/28/24 21:00 06/30/24 10:10 Thiamine 100 Mg Tablet GT 07/28/24 20:59 Not Given BID ARNOL Plan 63-year-old male with past medical history of oral cancer s/p radiation and chemotherapy (underneath the tongue 15 years ago and lower lip 4 years ago), esophageal strictures s/p dilations x 2, hypothyroidism, active smoker (smoked since 11 years old) and prior heroin use (on methadone) was admitted to the hospital on 06/26/2024 for dysphagia, failure to thrive, and left leg pain. #Goals of care discussion Had a goals of care discussion with patient's family given the patient's deterioration. The patient's wishes and as well as his family members was to not pursue any more aggressive interventions at this time and to change his CODE STATUS from full code to DNR/DNI. At this time we also discussed the patient's poor prognosis after speaking to the oncologist who also agreed the patient's prognosis was very poor given his stage IV cancer. Family mentioned that they had spoken with her oncologist and that they agreed that the patient's prognosis was very poor therefore they would like the patient to be more comfortable and to avoid any further aggressive treatment at this time. ? Referral to hospice ordered ? Patient will pursue hospice #Pneumoperitoneum ? Abdomen CT showed pneumoperitoneum which is commonly seen after PEG tube placement. ? Patient's abdomen was mildly tense and tender, but his general surgeon stated that there was no need for surgical intervention at this time. ? Patient's family also decided that they did not want to pursue any more aggressive interventions and would like to pursue hospice for now Plan: ? Continue Zosyn [06/29/2024?] ? Will continue to monitor #Dysphagia #Esophageal stricture s/p dilation #Failure to thrive #Hx of esophageal stricture s/p dilation x 2 #protein calorie malnutrition #cachexia #s/p PEG tube, taken out on 06/30/2024 ? Patient states today he has been having trouble passing his food that he thinks they get stuck in his throat. ? DDx esophageal strictures versus esophageal malignancy -BMI -14.2 ? EGD done yesterday showed patient had esophageal stricture which was dilated and he had successful PEG tube placed. -Peg tube taken ou on 06/30/2024 Plan: ? GI consulted, appreciate rcommendations ? Refer to registered dietitian ? Refer to speech therapist ? Will continue to monitor #Left lower leg pain #Left femur osteolytic lesions #Mediastinal lymphadenopathy #Hilar lymphadenopathy #Pulmonary nodules possible metastasis #Right pleural effusion #Hx of oral cancer s/p radiatation and chemo ? Patient states that he has been unable to bear weight on his left lower leg as it is very painful ?DDx bone metastasis versus multiple myeloma in the setting of high globulin ? Femur x-ray showed osteolytic lesion destroying cortex of proximal femur shaft measuring 36 mm and smaller loculated lesion of the subtrochanteric region of the left femur measuring 13 mm ? Spoke with patient's oncologist who stated that it was less likely to be recurrence of his prior cancer and that they which was most probably something new that he needed to have further workup. ? Chest/abdomen/pelvis CT showed enlarging mediastinal lymphadenopathy, obstructive pneumonia right lower lobe secondary to enlarging right hilar lymphadenopathy, pulmonary metastasis, and moderate to large right pleural effusion. ? Ultrasound-guided thoracentesis was unsuccessful as patient did not have enough fluid to be drained. ?Oncologist ordered lung biopsy, but interventional radiology stated patient was very high risk for pneumothorax given his low body weight. Spoke with patient as well as his family with his approval to discuss medical information. He was told all the risks, the lung biopsy given his low weight which included pneumothorax and he decided that he would like to have some time before making a decision. ?Oncology stated that patient's prognosis was very poor and recommended to not pursue lung biopsy at this time. Plan: -[place] for pain as needed - Consult hematology/oncology, appreciate recommendations -Will continue to monitor #Community-acquired pneumonia versus aspiration pneumonia ? Chest CT showed some obstructive pneumonia right lower lobe ? Patient has been producing some sputum today Plan: ? Continue azithromycin and Rocephin [06/28/2024?] -Continue Zosyn ? Will continue to monitor #Hypothyroidism -TSH 9.86, free t4 0.86 -Will continue patient's levothyroxine to 88 mcg #Hx of prior heroin use (on methadone) -Will continue patient's methadone Disposition: Patient pending hospice. Diet: NPO GI prophylaxis: Protonix DVT prophylaxis: SCDs Code: DNR DNI Case disclosed with Attending Dr. Charlie Figueroa PGY1
[2024-07-01] MEDS: HYDROmorphone INJ 2 MG/ML VIAL 1 MG IVP ×5 (01:02→18:39)
[2024-07-01 01:24] VITALS: PULSE 112; RESP 21; O2SAT 96
[2024-07-01] MEDS: DEXTROSE 5%-NS 1,000 ML 80 ML IV ×2 (02:30→14:55)
[2024-07-01] MEDS: LORazepam 2 MG/ML VIAL 0.5 MG IVP ×3 (03:36→12:24)
[2024-07-01 04:00] VITALS: BP 121/85; PULSE 119; RESP 20; TEMP 37.2; O2SAT 93
[2024-07-01] MEDS: PIPER/TAZO 3.375 GM 3.375 GM/50 ML BAG IV (05:37)
[2024-07-01 07:58] VITALS: PULSE 121; RESP 18; O2SAT 96
[2024-07-01 08:00] VITALS: BP 136/94; PULSE 118; RESP 17; TEMP 37.2; O2SAT 96
--- NOTE | 2024-07-01 08:56 | PD.ONCPROG ---
Documentation for date of: 07/01/24 Subjective Subjective Interval history: Patient desired to have PEG tube out stating it was causing discomfort. CT 06/28/2024 revealed pneumoperitoneum and chest x-ray 06/29/2024 revealed probable obstructive pneumonia right lung base Exam Vital Signs Temp Pulse Resp BP Pulse Ox O2 Del Method O2 Flow Rate 98.9 F 121 H 18 121/85 H 96 Nasal Cannula 4 07/01/24 04:00 07/01/24 07:58 07/01/24 07:58 07/01/24 04:00 07/01/24 07:58 07/01/24 04:00 07/01/24 07:58 FiO2 50 06/30/24 16:00 Objective Objective Narrative Objective Narrative: Appearing comfortable. Labs 06/30/24 05:12 06/30/24 05:12 Assessment & Plan A&P Narrative 1. History of prior tongue and lip cancer; prior surgery chemoradiation. 2. Suspected left femur mets; Enlarging mediastinal lymphadenopathy obstructive pneumonia RLL R hilar adenopathy 3. EGD esophageal dilation and PEG tube placement since removed. 4. Family desiring comfort measures only at this time. Time Spent With Patient Time: Total time spent is greater than 50% in coordination of care (as documented) at patient's floor/unit and/or counseling patient:
--- NOTE | 2024-07-01 10:53 | PC.SS ---
SS reviewed notes and coordinated with CUSTOMER RESOURCE SPECIALIST on finalizing d/c plan. Patient is now on hospice. D/c address: [address] [place] [address] with Paola prescott. Paola, contact [phone] [facility] with Juliann @ [phone] SS coordinating [facility] transportation for this evening at 5p.m. Juan is verifying insurance coverage.
--- NOTE | 2024-07-01 12:03 | ESDS_ITS ---
<Statement entered by Yash Guerra MD - 07/07/24 16:26> I reviewed above note and agree with findings and plans. I have also personally examined the patient with medicine team and went over assessment and plan with medical team including internet application developer and resident physician. Planned Discharge Date 07/01/24 DS: Providers Provider Date of admission: 06/26/24 15:23 Primary care physician: LESLIE Schroeder([facility]) Admitting Provider: Yash Guerra MD Attending Provider on Admission: Yash Guerra MD Consults: 06/26/24 13:48 Consult to Gastroenterology Stat Comment: g tube placement Consulting Provider: Marie Vazquez 06/26/24 16:28 Referral Registered Dietitian Routine Comment: Referral Speech Therapy Routine Comment: 06/26/24 17:16 Consult to Hematology Routine Comment: Consulting Provider: Jim Perkins 06/26/24 20:08 Referral Physical Therapy Routine Comment: Physician Instructions: 06/27/24 20:35 Referral Registered Dietitian Routine Comment: Instructions: MAY USE PEG TUBE NOW 06/28/24 23:07 Consult to General Surgery Stat Comment: Consulting Provider: Juan Antonio Wisdom 06/29/24 11:00 Referral Hospice Routine Comment: Attending Provider on DC: Yash Guerra MD Discharging Provider: Yash Guerra MD DS: Diagnosis Problem List Completed Was Problem List Reviewed/Reconciled?: Yes Hospital Course Hospital Course Hospital course: 63-year-old male with past medical history of oral cancer s/p radiation and chemotherapy (underneath the tongue 15 years ago and lower lip 4 years ago), esophageal strictures s/p dilations x 2, hypothyroidism, active smoker (smoked since 11 years old) and prior heroin use (on methadone) was admitted to the hospital on 06/26/2024 for dysphagia, failure to thrive, and left leg pain. In the ED patient came in with complaints of weakness and failure to thrive.Initially patient was tachycardic, hypertensive, and afebrile. Initial labs were relevant for normocytic normochromic anemia (Hgb 10.2), mild hyponatremia (133), elevated globulin at 4.3, and elevated total protein to 8.4. Initial imaging included femur x-ray which showed osteolytic lesions destroying the cortex of the proximal femur shaft and a smaller osteolytic lesion still trochanteric region of the left femur. Additional imaging included a venous Doppler study which was negative for DVT, chest x-ray was showed bilateral opacities which could be due to pneumonia versus pulmonary fibrosis, and EKG which showed sinus tachycardia. Given patient's failure to thrive and dysphagia GI was consulted for EGD and possible PEG tube placement. Patient underwent EGD on 06/27/2024 in which esophageal stricture was found and was dilated as well as PEG tube placement. Oncologist also saw the patient given the new findings of osteolytic lesion on the left femur which could have possibly been due to metastasis versus a new cancer at this time. At this time oncology Angelo the patient may be having a new malignancy versus possible metastasis and have ordered a bone scan as well as lung biopsy. Patient then had a chest CT which showed enlarging mediastinal lymphadenopathy and enlarging right hilar adenopathy as well as right pleural effusion and multiple pulmonary nodules which could be pulmonary metastasis. Given the findings of the chest CT which showed a pulmonary mass on lung biopsy was ordered by oncologist, but interventional radiologist stated that patient was very high risk given his multiple comorbidities and his current body weight. At this time we spoke to the patient as well as his family members and they decided to do have some time to think about if they would like to proceed with the lung biopsy. Later on 06/28/2024 patient had increased abdominal pain and abdomen CT was ordered which revealed pneumoperitoneum and the patient was placed on high flow nasal cannula given to the saturation. Given his patient's worsening condition spoke with oncologist who stated that patient would not be a good candidate at this time from lung biopsy anymore given his quick deterioration and that he had stage IV cancer. Spoke with family and patient about his CODE STATUS and they had made the decision of patient to be DNR DNI and did not want any more aggressive interventions at this time. Had goals of care discussion in which patient was to be placed on hospice given his poor prognosis and continued deterioration. At this time we proceeded with hospice, but patient then became adamant that he wanted his PEG tube taken out and eventually was taken out by GI specialist as it was making the patient comfortable. After PEG tube was taken out patient was comfortably resting in bed. Patient remained stable with adequate blood pressure as well as heart rate and oxygenation on nasal cannula. Spoke with family at bedside and stated that hospice should provide a kit with will require medication. At the time of discharge patient was stable enough to be discharged home with hospice. Discharge plan: ? Discharge home with hospice, care plan as per hospice physician Problem list: #Goals of care discussion #Pneumoperitoneum #Dysphagia #Esophageal stricture s/p dilation #Failure to thrive #Hx of esophageal stricture s/p dilation x 2 #protein calorie malnutrition #cachexia #s/p PEG tube #Left lower leg pain #Left femur osteolytic lesions #Mediastinal lymphadenopathy #Hilar lymphadenopathy #Pulmonary nodules possible metastasis #Right pleural effusion #Hx of oral cancer s/p radiatation and chemo #Community-acquired pneumonia versus aspiration pneumonia #Hypothyroidism #Hx of prior heroin use (on methadone) Case disclosed with Attending Dr. Guerra and My senior Dr. Herrera PGY2. Juventino Figueroa PGY1 Senior Resident Attestation: I discussed with and supervised the internet application developer physician involved in the care of this patient. I personally saw and examined the patient and discussed the assessment and plan with the entire medicine team, including my attending. I agree with the discharge plan as documented above. Tejas Herrera MD PGY2 Internal Medicine Status at Discharge Overall status at discharge: patient is not back to baseline Time Spent with Patient Time attestation: Total time spent providing and/or coordinating discharge services:>35 min Exam Vital Signs Temp Pulse Resp BP Pulse Ox O2 Del Method O2 Flow Rate 99.0 F 118 H 17 136/94 H 96 Nasal Cannula 3 07/01/24 08:00 07/01/24 08:00 07/01/24 08:00 07/01/24 08:00 07/01/24 08:00 07/01/24 08:00 07/01/24 08:00 FiO2 50 06/30/24 16:00 Narrative Exam General: resting in bed, thin frail male, temporal wasting Eyes: with eyes closed during assessment Ears: No visible ear discharge Nose: No nasal discharge. Mouth/Throat: Dry mucous membranes, no dentation Neck: Neck supple, no cervical lymphadenopathy. Lungs: Crackles JAVIER, No accessory muscle use. Cardio: Normal S1/S2, regular rhythm, no murmurs, no JVD Abdomen: mildly tense and tender, no palpable masses, peristalsis present, no guarding or rebound. Extremities: Symmetrical, no significant deformities, no peripheral edema , peripheral pulses presents. Skin: No rashes, no lesions, warm to touch. Neurological: not able to assessed due to patient's current condition Discharge Plan Plan Patient Disposition: Home w/HOSPICE Disposition Comment: stable Care Plan Goals: -Discharge with hospice, care plan as per hospice physician. Prescriptions/Referrals Prescriptions/Med Rec: Continued hydrocodone-acetaminophen 10-325 mg Tablet 1 tab PO Q4H PRN (Reason: Pain, Severe) Rx Instructions: CANCER PAIN levothyroxine 25 mcg/mL Solution 50 mcg PO QDAY pantoprazole 40 mg Tablet,Delayed Release (Dr/Ec) 40 mg PO BID methadone 10 mg/mL Concentrate 100 mg PO QDAY Referrals: Edward SAUNDERS)Lilia FNP [Primary Care Provider] - Marie Vazquez MD [Physician] - Patient/Caregiver Discharge Instructions Discharge Activity: activity as tolerated Education Materials: Thoracentesis Dc, Understanding PEG Tube Feeding Print Language: Yemeni Stand Alone Forms: Elidia Award Info., Patient Portal Info Letter Discharge Order Discharge Orders: Discharge (Routine); Ordered 07/01/24 Ordered By: Anne Heredia Quality Discharge Quality Measures VTE prophylaxis
--- NOTE | 2024-07-01 12:44 | PC.SS ---
LOCKSTITCH HEMMER submitted 72 hr medication list to [facility].
--- NOTE | 2024-07-01 13:10 | PC.SS ---
BLOCK PRESS OPERATOR informed by patient's niece, Paola; that she will not be able to receive patient at her residence due to his declining condition. BLOCK PRESS OPERATOR informed that patient's family will be meeting later today to discuss whose residence patient can transition to.
--- NOTE | 2024-07-01 13:37 | PC.SS ---
SS was informed by physician residents (Team C) and Dr. Guerra the hospice agency orders medication for pt to go home with.
[2024-07-01] MEDS: LORazepam 2 MG/ML VIAL 1 MG IVP ×3 (14:55→23:50)
--- NOTE | 2024-07-01 15:42 | PC.SS ---
DUST COLLECTOR update resident and attending on patient's niece unable to receive patient to residence. Family exploring other residential options for patient to discharge to.
--- NOTE | 2024-07-01 15:43 | PC.SS ---
WATER RESTORATION TECHNICIAN contacted both [facility] (Sonny) and [facility] (Sukhjinder) to cancel ambulance transport scheduled for today.
[2024-07-01 16:00] VITALS: BP 157/106; PULSE 118; RESP 18; TEMP 37.8; O2SAT 97
[2024-07-01 20:00] VITALS: BP 153/109; PULSE 111; RESP 16; TEMP 36.8; O2SAT 96
--- NOTE | 2024-07-01 20:33 | PD.IMPROG ---
Documentation for date of: 07/01/24 Subjective Subjective Interval history: Patient feels more comfortable after the removal of the PEG tube endoscopically Exam Vital Signs Temp Pulse Resp BP Pulse Ox O2 Del Method O2 Flow Rate 100.0 F 118 H 18 157/106 H 97 Nasal Cannula 3 07/01/24 16:00 07/01/24 16:00 07/01/24 16:00 07/01/24 16:00 07/01/24 16:00 07/01/24 16:00 07/01/24 16:00 FiO2 50 06/30/24 16:00 Objective Labs 06/30/24 05:12 06/30/24 05:12 Impressions Impression: # Widespread metastatic disease # More comfortable after removal of the PEG tube Assessment & Plan A&P Narrative 1. History of prior tongue and lip cancer; prior surgery chemoradiation. 2. Suspected left femur mets; Enlarging mediastinal lymphadenopathy obstructive pneumonia RLL R hilar adenopathy 3. EGD esophageal dilation and PEG tube placement since removed. 4. Family desiring comfort measures only at this time. Time Spent With Patient Time: Total time spent is greater than 50% in coordination of care (as documented) at patient's floor/unit and/or counseling patient:
--- NOTE | 2024-07-01 21:56 | PC.NURSE ---
This RN talked to the family member (genie) of the patient to find out what brought the patient to the hospital, what happened today and the plan of care. Genie explained the reason for patient admission and how he has been declining and that he is on comfort care now; she wants him to be comfortable. She also expressed concern about having to ask during the day for meds when the patient is visibly uncomfortable as well as wondering why the patient was not on a morphine drip for the comfort care. This RN stated that he would call and talk to the doctor about it and that the goal tonight will be to keep the patient comfortable.
--- NOTE | 2024-07-01 23:33 | PC.NURSE ---
This RN called and discussed comfort care status with Dr. Leija and the need for a morphine drip and other comfort care interventions, which family of patient has also requested and wanted. Doctor went to bedside to talk to the patient family and assess patient. New orders received for morphine drip and comfor care interventions. There was not even an official order for comfort care in the orders previous to this shift; Dr. Leija placed that order immediately. Family of the patient are relieved.
[2024-07-01] MEDS: GLYCOPYRROLATE INJ 0.2 MG/ML VIAL IV (23:50)
[2024-07-02] VITALS: BP 114/96; PULSE 136; RESP 16; TEMP 36.6; O2SAT 94
[2024-07-02] MEDS: Morphine IV Drip 100mg/100ml 100 ML IV (00:05)
--- NOTE | 2024-07-02 00:42 | PD.RESEVENT ---
Documentation for date of: 07/02/24 Event Note Event Note: Received call from RN regarding family's request for this patient to be placed on full comfort care measures. Around 10:30 pm the patient's room was visited and discussion was held with Anastasia prescotthel, and son, Mike, at the bedside. She expressed recent barriers to the discharge on home hospice. Today the patient was planned to be discharged to other niece's home on hospice but due to the patient's rapid decline in the last few days, family members feared they would be unable to handle the care needed to keep the patient comfortable as he declines at home. Family members expressed concern that throughout today patient was seeming uncomfortable and it was taking too long to receive pain or anxiety medications. Kasia stated that she requested morphine drip to be started earlier today but it was not started. Full comfort measures including morphine drip starting at 2 mg/hr with titration protocol and morphine 2 mg IV q30min as needed were started tonight, IV fluids and other orders discontinued, nasal cannula to be downtitrated to 2L. Tawanna Leija, PGY-2
[2024-07-02] MEDS: MORPHINE SULF INJ 10 MG/ML VIAL 2 MG IVP ×7 (01:40→13:33)
[2024-07-02] MEDS: LORazepam 2 MG/ML VIAL 1 MG IVP ×3 (02:58→12:42)
[2024-07-02 03:53] VITALS: PULSE 128; RESP 20; O2SAT 88
[2024-07-02] MEDS: GLYCOPYRROLATE INJ 0.2 MG/ML VIAL IV (05:44)
--- NOTE | 2024-07-02 08:42 | PC.PT ---
Patient will be D/C from PT secondary to he is on comfort care measures.
--- NOTE | 2024-07-02 10:18 | PC.SS ---
Follow up note: SS and MESS COOK met with family at bedside. Family declined SNF placement. Prefers patient at home with hospice. Family still pending identification of location to facilitate hospice services. Updated physician team. Patient remains on comfort care. D/c plan pending. MESS COOK to update hospice agency.
--- NOTE | 2024-07-02 11:03 | PC.SS ---
GENERAL PRACTITIONER received request from decision unit rn to meet with family at patient's bedside. GENERAL PRACTITIONER met with patient's family (Mike-son, Maria Teresa-niece, Paola-niece). Family has agreed to have patient discharge to niece (Paola) residence today. care services manager to arrange ambulance transport. GENERAL PRACTITIONER updated hospitalist team and [facility]. D/c address: [address] [place] [address].
--- NOTE | 2024-07-02 11:13 | PC.SS ---
SS set up gurney transport for home with hospice services. Reference# [id number] for [facility]. Patient to d/c home with family to d/c address: [address] [place] [address]. [facility] already updated SS will cancel 02 from [facility] which was to be delivered previously when patient was going home with HH
--- NOTE | 2024-07-02 11:43 | ESDS_ITS ---
<Statement entered by Yash Guerra MD - 07/13/24 13:37> I reviewed above note and agree with findings and plans. I have also personally examined the patient with medicine team and went over assessment and plan with medical team including engineer internship and resident physician. Planned Discharge Date 07/02/24 DS: Providers Provider Date of admission: 06/26/24 15:23 Primary care physician: LESLIE Schroeder([facility]) Admitting Provider: Yash Guerra MD Attending Provider on Admission: Yash Guerra MD Consults: 06/26/24 13:48 Consult to Gastroenterology Stat Comment: g tube placement Consulting Provider: Marie Vazquez 06/26/24 16:28 Referral Registered Dietitian Routine Comment: Referral Speech Therapy Routine Comment: 06/26/24 17:16 Consult to Hematology Routine Comment: Consulting Provider: Jim Perkins 06/26/24 20:08 Referral Physical Therapy Routine Comment: Physician Instructions: 06/27/24 20:35 Referral Registered Dietitian Routine Comment: Instructions: MAY USE PEG TUBE NOW 06/28/24 23:07 Consult to General Surgery Stat Comment: Consulting Provider: Juan Antonio Wisdom 06/29/24 11:00 Referral Hospice Routine Comment: Attending Provider on DC: Yash Guerra MD Discharging Provider: Yash Guerra MD DS: Diagnosis Problem List Completed Was Problem List Reviewed/Reconciled?: Yes Hospital Course Hospital Course Hospital course: 63-year-old male with past medical history of oral cancer s/p radiation and chemotherapy (underneath the tongue 15 years ago and lower lip 4 years ago), esophageal strictures s/p dilations x 2, hypothyroidism, active smoker (smoked since 11 years old) and prior heroin use (on methadone) was admitted to the hospital on 06/26/2024 for dysphagia, failure to thrive, and left leg pain. In the ED patient came in with complaints of weakness and failure to thrive.Initially patient was tachycardic, hypertensive, and afebrile. Initial labs were relevant for normocytic normochromic anemia (Hgb 10.2), mild hyponatremia (133), elevated globulin at 4.3, and elevated total protein to 8.4. Initial imaging included femur x-ray which showed osteolytic lesions destroying the cortex of the proximal femur shaft and a smaller osteolytic lesion still trochanteric region of the left femur. Additional imaging included a venous Doppler study which was negative for DVT, chest x-ray was showed bilateral opacities which could be due to pneumonia versus pulmonary fibrosis, and EKG which showed sinus tachycardia. Given patient's failure to thrive and dysphagia GI was consulted for EGD and possible PEG tube placement. Patient underwent EGD on 06/27/2024 in which esophageal stricture was found and was dilated as well as PEG tube placement. Oncologist also saw the patient given the new findings of osteolytic lesion on the left femur which could have possibly been due to metastasis versus a new cancer at this time. At this time oncology Angelo the patient may be having a new malignancy versus possible metastasis and have ordered a bone scan as well as lung biopsy. Patient then had a chest CT which showed enlarging mediastinal lymphadenopathy and enlarging right hilar adenopathy as well as right pleural effusion and multiple pulmonary nodules which could be pulmonary metastasis. Given the findings of the chest CT which showed a pulmonary mass on lung biopsy was ordered by oncologist, but interventional radiologist stated that patient was very high risk given his multiple comorbidities and his current body weight. At this time we spoke to the patient as well as his family members and they decided to do have some time to think about if they would like to proceed with the lung biopsy. Later on 06/28/2024 patient had increased abdominal pain and abdomen CT was ordered which revealed pneumoperitoneum and the patient was placed on high flow nasal cannula given to the saturation. Given his patient's worsening condition spoke with oncologist who stated that patient would not be a good candidate at this time from lung biopsy anymore given his quick deterioration and that he had stage IV cancer. Spoke with family and patient about his CODE STATUS and they had made the decision of patient to be DNR DNI and did not want any more aggressive interventions at this time. Had goals of care discussion in which patient was to be placed on hospice given his poor prognosis and continued deterioration. At this time we proceeded with hospice, but patient then became adamant that he wanted his PEG tube taken out and eventually was taken out by GI specialist as it was making the patient comfortable. After PEG tube was taken out patient was comfortably resting in bed. Patient remained stable with adequate blood pressure as well as heart rate and oxygenation on nasal cannula. Spoke with family at bedside and stated that hospice should provide a kit with will require medication. At the time of discharge patient was stable enough to be discharged home with hospice. 07/02/2024: Patient's discharge was delayed as disposition was unavailable due to family not knowing to which house patient will go given his deterioration. Overnight patient was also made comfort care and he was placed on morphine drip. Patient was resting peacefully in bed. Discharge plan: ? Discharge home with hospice, care plan as per hospice physician - Patient made comfort care now on morphine drip. Problem list: #Goals of care discussion #Pneumoperitoneum #Dysphagia #Esophageal stricture s/p dilation #Failure to thrive #Hx of esophageal stricture s/p dilation x 2 #protein calorie malnutrition #cachexia #s/p PEG tube #Left lower leg pain #Left femur osteolytic lesions #Mediastinal lymphadenopathy #Hilar lymphadenopathy #Pulmonary nodules possible metastasis #Right pleural effusion #Hx of oral cancer s/p radiatation and chemo #Community-acquired pneumonia versus aspiration pneumonia #Hypothyroidism #Hx of prior heroin use (on methadone) Case disclosed with Attending Dr. Guerra and My senior Dr. Herrera PGY2. Juventino Figueroa PGY1 Senior Resident Attestation: I discussed with and supervised the engineer internship physician involved in the care of this patient. I personally saw and examined the patient and discussed the assessment and plan with the entire medicine team, including my attending. I agree with the discharge plan as documented above. Tejas Herrera MD PGY2 Internal Medicine Status at Discharge Overall status at discharge: patient is progressing back to baseline Time Spent with Patient Time attestation: Total time spent providing and/or coordinating discharge services: >35 min Exam Vital Signs Temp Pulse Resp BP Pulse Ox O2 Del Method O2 Flow Rate 97.9 F 128 H 20 114/96 H 88 L Nasal Cannula 1 07/02/24 00:00 07/02/24 03:53 07/02/24 03:53 07/02/24 00:00 07/02/24 03:53 07/02/24 04:00 07/02/24 03:53 FiO2 50 06/30/24 16:00 Narrative Exam General: resting in bed, thin frail male, temporal wasting Eyes: with eyes closed during assessment Ears: No visible ear discharge Nose: No visible nasal discharge. Mouth/Throat: Dry mucous membranes, no dentation Neck: Neck supple, no cervical lymphadenopathy. Lungs: Crackles JAVIER still present, No accessory muscle use. Cardio: Normal S1/S2, regular rhythm, no murmurs, no JVD Abdomen: peristalsis present Extremities: Symmetrical, no significant deformities, no peripheral edema , peripheral pulses presents. Skin: No rashes, no lesions, warm to touch. Neurological: not able to assessed due to patient's current condition Rest of PE deferred as patient is comfort care. Discharge Plan Plan Patient Disposition: Home w/HOSPICE Disposition Comment: stable Care Plan Goals: -Discharge with hospice, care plan as per hospice physician. Prescriptions/Referrals Prescriptions/Med Rec: Continued hydrocodone-acetaminophen 10-325 mg Tablet 1 tab PO Q4H PRN (Reason: Pain, Severe) Rx Instructions: CANCER PAIN levothyroxine 25 mcg/mL Solution 50 mcg PO QDAY pantoprazole 40 mg Tablet,Delayed Release (Dr/Ec) 40 mg PO BID methadone 10 mg/mL Concentrate 100 mg PO QDAY Referrals: Lilia Leon FNP ([facility]) [Primary Care Provider] - Marie Vazquez MD [Physician] - Patient/Caregiver Discharge Instructions Discharge Activity: activity as tolerated Education Materials: Thoracentesis Dc, Understanding PEG Tube Feeding Print Language: [place] Islander Stand Alone Forms: Elidia Award Info., Patient Portal Info Letter Discharge Order Discharge Orders: Discharge (Routine); Ordered 07/02/24 Ordered By: Anne Heredia Quality Discharge Quality Measures VTE prophylaxis
[2024-07-02 12:00] VITALS: BP 135/109; PULSE 120; RESP 18; TEMP 36.2; O2SAT 91
--- NOTE | 2024-07-02 12:00 | PC.SS ---
Addendum entered and electronically signed by ALVINA Jacobson 07/02/24 12:53: [employer] notified patient's family of transport time. Original Note: [employer] informed [facility] that patient's transport has been scheduled for 1:30 pm today.
[2024-07-02 23:34] LABS: Albumin 2.5 g/dL (3.8-4.8); Alpha-1-Globulin 0.4 g/dL (0.2-0.3); Beta-1-Globulin 0.5 g/dL (0.4-0.6); Beta-2-globulin 0.6 g/dL (0.2-0.5)
[2024-07-03 06:25] LABS: CA 19-9 Antigen* 463 U/mL (<34); Protein, total, serum 6.9 g/dL (6.1-8.1)
== END 2024-07-02 14:08 | disposition hospice, home (50) | DRG 243 ==
LOC: SERX 14:50 → SERHOLD 15:43 → S3EX 19:37 → S3NX 06-27 15:35 → S3SX 07-01 01:17
PROVIDERS: Nurse Practitioner Primary Care; Radiology Diagnostic Radiology; Radiology Therapeutic Radiology; Specialist; Student in an Organized Health Care Education/Training Program; Admitting Provider Internal Medicine; Emergency Provider Emergency Medicine; PCP Nurse Practitioner Primary Care; Visit Provider Internal Medicine
PROC: 0DH63UZ Insertion of Feeding Device into Stomach, Percutaneous Approach (ICD-10-PCS; CPT 43246; principal; 2024-06-27 20:45)
PROC: 0D718ZZ Dilation of Upper Esophagus, Via Natural or Artificial Opening Endoscopic (ICD-10-PCS; CPT 43239; 2024-06-27 20:45)
PROC: (CPT 43239; principal; 2024-06-30 11:30)
DX: K22.2 Esophageal obstruction (principal); Z68.1 Body mass index [BMI] 19.9 or less, adult; F11.20 Opioid dependence, uncomplicated; E87.1 Hypo-osmolality and hyponatremia; E46 Unspecified protein-calorie malnutrition; R62.7 Adult failure to thrive; I10 Essential (primary) hypertension; E03.9 Hypothyroidism, unspecified; C78.00 Secondary malignant neoplasm of unspecified lung; C79.51 Secondary malignant neoplasm of bone; R59.0 Localized enlarged lymph nodes; J90 Pleural effusion, not elsewhere classified; R64 Cachexia; J69.0 Pneumonitis due to inhalation of food and vomit; K66.8 Other specified disorders of peritoneum; M89.552 Osteolysis, left thigh; Z51.5 Encounter for palliative care; Z85.818 Personal history of malignant neoplasm of other sites of lip, oral cavity, and pharynx; Z66 Do not resuscitate; Z92.21 Personal history of antineoplastic chemotherapy; Z92.3 Personal history of irradiation; F17.210 Nicotine dependence, cigarettes, uncomplicated; Z79.890 Hormone replacement therapy; Z79.899 Other long term (current) drug therapy
CPT/HCPCS: 36415; 71045; 71260; 73552; 74177; 76999; 80053; 80061; 81001; 82150; 82378; 82945; 83615; 83690; 83735; 84100; 84153; 84155; 84157; 84165; 84439; 84443; 85025; 85610; 85730; 86301; 86334; 87070; 87075; 87205; 89051; 92526; 92610; 93005; 93971; 94640; 96372; 96374; 97162; 99285; A4649; A9270; C1769; J0456; J0689; J0696; J1200; J1885; J2060; J2175; J2250; J2270; J2470; J2543; J3010; J3475; J3490; J7030; J7042; J7050; J7070; Q0162; Q9967; J1596